=== PATIENT | female | born 1975 | race Caucasian/White ===

== ENCOUNTER → 2018-12-23 07:42 | Outpatient (CLI) | payer OTHER, SELFPAY ==
--- NOTE | 2018-12-23 | DI.MG.S_ITS ---
BILATERAL DIGITAL SCREENING MAMMOGRAM 3D/2D WITH CAD: 12/23/2018 CLINICAL: Routine screening. Family history of breast cancer. Comparison is made to exams dated: 12/16/2017 mammogram, 12/11/2017 mammogram, and 09/20/2015 mammogram - [facility]. The tissue of both breasts is heterogeneously dense. This may lower the sensitivity of mammography. Current study was also evaluated with a Computer Aided Detection (CAD) system. No significant masses, calcifications, or other findings are seen in either breast. There has been no significant interval change. IMPRESSION: NEGATIVE There is no mammographic evidence of malignancy. A 1 year screening mammogram is recommended. This exam was interpreted at Station ID: [id number]. NOTE: For mammograms, a report in lay terms will be sent to the patient. Approximately 15% of breast malignancies will not be visualized mammographically. In the management of a palpable breast mass, a negative mammogram must not discourage biopsy of a clinically suspicious lesion. Electronically Signed By: Albaro mcclure/maite:12/23/2018 08:58:25 copy to: Brooke Soriano letter sent: Normal Exam ACR BI-RADS Category 1: Negative 3341F
== END ==
PROVIDERS: Family Provider Family Medicine; PCP Family Medicine; Visit Provider Family Medicine
DX: Z12.31 Encounter for screening mammogram for malignant neoplasm of breast (principal); Z80.3 Family history of malignant neoplasm of breast
CPT/HCPCS: 77063; 77067

== ENCOUNTER → 2019-07-07 11:32 | Outpatient (CLI) | payer OTHER, SELFPAY ==
--- NOTE | 2019-07-07 | DI.RAD.S_ITS ---
PROCEDURE: XR AC JOINT BI INDICATIONS: DISLOCATION VS AC JOINT SEPERATION TECHNIQUE: 2 views each of both acromioclavicular joints were acquired. COMPARISON: [facility], CR, XR SHOULDER RT MIN 2V, 07/07/2019, 11:44. FINDINGS: Bones: No fractures or dislocations. Weightbearing views demonstrate unremarkable acromioclavicular joint alignment without evidence of separation. No suspicious bony lesions. Superior ribs appear normal. There are mild degenerative changes of the right acromioclavicular joint as evidenced by osteophyte formation. Soft tissues: No suspicious soft tissue calcifications. IMPRESSION: Mild degenerative changes of the right acromioclavicular joint. No radiographic evidence of acromioclavicular joint fracture or dislocation. Consider followup radiographs in 7-10 days if there is continued clinical concern. Dictated by: Bull Serrano M.D. on 07/07/2019 at 17:09 Approved by: Bull Serrano M.D. on 07/07/2019 at 17:11
--- NOTE | 2019-07-07 11:33 | DI.RAD.S_ITS ---
PROCEDURE: XR SHOULDER RT MIN 2V INDICATIONS: shoulder pain dislocation vs ac joint seperation TECHNIQUE: 3 views of the shoulder were acquired. COMPARISON: None. FINDINGS: Bones: No fractures or dislocations. No suspicious bony lesions. Visualized ribs appear intact. There mild degenerative changes of the right acromioclavicular joint as evidenced by osteophyte formation. There is no evidence of old right clavicular joint separation. There is no convincing displaced fracture of the right acromioclavicular joint. Soft tissues: No suspicious soft tissue calcifications. IMPRESSION: Mild degenerative changes of the right acromioclavicular joint. No convincing right acromioclavicular joint fracture or dislocation is identified. Consider followup radiographs in 7-10 days if there is continued clinical concern. Dictated by: Bull Serrano M.D. on 07/07/2019 at 17:04 Approved by: Bull Serrano M.D. on 07/07/2019 at 17:08
== END ==
PROVIDERS: PCP Family Medicine; Visit Provider Family Medicine
DX: M25.511 Pain in right shoulder (principal); M19.011 Primary osteoarthritis, right shoulder
CPT/HCPCS: 73030; 73050

== ENCOUNTER → 2020-03-23 08:38 | Outpatient (CLI) | payer OTHER, SELFPAY ==
--- NOTE | 2020-03-23 | DI.MG.S_ITS ---
BILATERAL DIGITAL SCREENING MAMMOGRAM 3D/2D WITH CAD: 03/23/2020 CLINICAL: Routine screening. Family history of breast cancer. Comparison is made to exams dated: 12/23/2018 mammogram, 12/11/2017 mammogram, 09/20/2015 mammogram, and 12/16/2017 mammogram - [facility]. The tissue of both breasts is heterogeneously dense. This may lower the sensitivity of mammography. Current study was also evaluated with a Computer Aided Detection (CAD) system. No significant masses, calcifications, or other findings are seen in either breast. There has been no significant interval change. IMPRESSION: NEGATIVE There is no mammographic evidence of malignancy. A 1 year screening mammogram is recommended. This exam was interpreted at Station ID: [id number]. NOTE: For mammograms, a report in lay terms will be sent to the patient. Approximately 15% of breast malignancies will not be visualized mammographically. In the management of a palpable breast mass, a negative mammogram must not discourage biopsy of a clinically suspicious lesion. Electronically Signed By: Anejl bañuelos/maite:03/25/2020 09:05:52 copy to: Emile Saenz letter sent: Normal Exam ACR BI-RADS Category 1: Negative 3341F
== END ==
PROVIDERS: PCP Family Medicine; Referring Provider Obstetrics & Gynecology; Visit Provider Obstetrics & Gynecology
DX: Z12.31 Encounter for screening mammogram for malignant neoplasm of breast (principal); Z80.3 Family history of malignant neoplasm of breast
CPT/HCPCS: 77063; 77067

== ENCOUNTER → 2021-05-13 12:25 | Outpatient (CLI) | payer OTHER, SELFPAY ==
[2021-05-13 14:08] LABS: COVID19 -Nasal RAPID Negative (Negative)
[2021-05-13 15:17] LABS: Influenza A - CEPHEID Flu A NEGATIVE (NEGATIVE); Influenza B - CEPHEID Flu B NEGATIVE (NEGATIVE)
[2021-05-13 17:14] LABS: Monotest Negative (Negative)
== END ==
PROVIDERS: PCP Family Medicine; Referring Provider Nurse Practitioner Family; Visit Provider Nurse Practitioner Family
DX: R50.9 Fever, unspecified (principal); R51.9 Headache, unspecified; R53.83 Other fatigue; J02.9 Acute pharyngitis, unspecified
CPT/HCPCS: 36415; 86318; 87070; 87502; 87635

== ENCOUNTER → 2021-05-14 11:14 | Outpatient (CLI) | payer OTHER, SELFPAY ==
--- NOTE | 2021-05-14 11:15 | DI.RAD.S_ITS ---
PROCEDURE: XR CHEST 2V INDICATIONS: cough TECHNIQUE: 2 views of the chest were acquired. COMPARISON: [facility], , CHEST 2 VIEW, 12/26/2013, 15:31. FINDINGS: Surgical changes and devices: Cholecystectomy clips. Lungs and pleura: Lungs are clear. No pleural effusions or pneumothorax. Mediastinum: Mediastinal contours are normal. Heart size is normal. Bones and chest wall: No suspicious bony abnormalities. Soft tissues appear unremarkable. IMPRESSION: No acute cardiopulmonary disease. Dictated by: Melissa Knutson M.D. on 05/14/2021 at 14:23 Approved by: Melissa Knutson M.D. on 05/14/2021 at 14:27
== END ==
PROVIDERS: PCP Family Medicine; Referring Provider Nurse Practitioner Family; Visit Provider Nurse Practitioner Family
DX: R05 Cough (principal)
CPT/HCPCS: 71046

== ENCOUNTER → 2022-01-22 09:21 | Outpatient (CLI) | payer OTHER, SELFPAY ==
[2022-01-22 10:56] LABS: Add Manual Diff / Slide Review NO; Basophils Absolute Auto 0 /uL (0-100); Basophils Percent Auto 0.9 % (0-2); Eosinophils Absolute Auto 200 /uL (0-450); Eosinophils Percent Auto 3.4 % (2-4); Hematocrit 43.4 % (36-46); Lymphocytes Absolute Auto 1300 /uL (1100-4500); Mean Corpuscular HGB Conc 34.5 % (30-36); Mean Corpuscular Hemoglobin 31.4 PG (26-34); Monocytes Absolute Auto 600 /uL (0-900); Neutrophils Absolute Auto 2400 /uL (1500-7000); Neutrophils Percent Auto 52.7 % (50-75); Platelet Count 285 X10^3/uL (150-400); Red Blood Cell Count 4.77 X10^6/uL (4.0-5.2); White Blood Cell Count 4.6 X10^3/uL (4.5-11.0)
[2022-01-22 11:08] LABS: Alanine Aminotransferase 89 IU/L (<35); Albumin 4.6 g/dL (3.5-5.0); Albumin Globulin Ratio 1.4 (1.0-2.8); Alkaline Phosphatase 79 U/L (38-126); Aspartate Aminotransferase 58 IU/L (14-36); Bilirubin Total 0.6 mg/dL (0.2-1.3); Blood Urea Nitrogen 15 mg/dL (7-17); Calcium 9.1 mg/dL (8.4-10.2); Carbon Dioxide 28 mmol/L (22-32); Chloride 103 mmol/L (98-107); Estimated Glomerular Filt Rate > 60 mL/min (>60); Globulin 3.3 g/dL (1.7-4.1); Glucose 103 mg/dL (70-100); HEMOLYSIS < 15 (0-50); Potassium 4.6 mmol/L (3.4-5.1); Sodium 140 mmol/L (137-145); Total Protein 7.9 g/dL (6.3-8.2)
[2022-01-22 11:44] LABS: TSH w/ Reflex to FT4 0.96 uIU/mL (0.47-4.68)
== END ==
PROVIDERS: PCP Family Medicine; Referring Provider Family Medicine; Visit Provider Family Medicine
DX: R05.9 Cough, unspecified (principal); R50.9 Fever, unspecified; R53.83 Other fatigue
CPT/HCPCS: 36415; 80053; 84443; 85025

== ENCOUNTER → 2022-04-18 09:02 | Outpatient (CLI) | payer OTHER, SELFPAY ==
--- NOTE | 2022-04-18 09:03 | DI.MG.S_ITS ---
BILATERAL DIGITAL SCREENING MAMMOGRAM 3D/2D WITH CAD: 04/18/2022 CLINICAL: Routine screening. Family history of breast cancer. Comparison is made to exams dated: 03/23/2020 mammogram, 12/23/2018 mammogram, and 12/11/2017 mammogram - [facility]. There are scattered fibroglandular elements in both breasts. Current study was also evaluated with a Computer Aided Detection (CAD) system. There are benign calcifications in both breasts. No significant masses, calcifications, or other findings are seen in either breast. There has been no significant interval change. IMPRESSION: BENIGN There is no mammographic evidence of malignancy. A 1 year screening mammogram is recommended. Based on the Tyrer Cuzick model (a risk assessment model) the patient's lifetime risk is 7.1% and her 10 year risk is 1.4%. According to the ACR, ACS, and NCCN guidelines, an annual breast MRI exam along with mammogram is recommended if the patient's lifetime risk is 20% or greater. This exam was interpreted at Station ID: [id number]. NOTE: For mammograms, a report in lay terms will be sent to the patient. Approximately 15% of breast malignancies will not be visualized mammographically. In the management of a palpable breast mass, a negative mammogram must not discourage biopsy of a clinically suspicious lesion. Electronically Signed By: Albaro mcclure/maite:04/20/2022 07:38:55 copy to: Emile Saenz letter sent: Normal Exam ACR BI-RADS Category 2: Benign Finding(s) 3342F
== END ==
PROVIDERS: PCP Family Medicine; Referring Provider Obstetrics & Gynecology; Visit Provider Obstetrics & Gynecology
DX: Z12.31 Encounter for screening mammogram for malignant neoplasm of breast (principal); Z80.3 Family history of malignant neoplasm of breast
CPT/HCPCS: 77063; 77067

== ENCOUNTER → 2022-05-19 16:13 | Outpatient (CLI) | payer OTHER, SELFPAY ==
--- NOTE | 2022-05-19 16:14 | DI.US.S_ITS ---
PROCEDURE: US PELVIC COMPLETE INDICATIONS: bleeding TECHNIQUE: Real-time scanning was performed of the pelvic organs, with image documentation. Additional endovaginal scanning was necessary due to incomplete visualization of the adnexal and endometrial structures by transabdominal scanning. COMPARISON: [facility], US, PELVIC COMPLETE, 08/09/2007, 9:11. FINDINGS: Uterus: Uterus is anteverted and normal in size at 7.6 x 3.1 x 4.7 cm. The myometrium is heterogeneous. The endometrium is ill-defined and suboptimally visualized. Approximately 3 mm. Ovaries: Ovaries are surgically absent. No adnexal masses seen. Other: No pathologic free abdominal or pelvic fluid. IMPRESSION: 1. The endometrial complex is suboptimally visualized, ill-defined and cannot be accurately assessed. If indicated, pre and post contrast gynecologic protocol MRI could be performed for further assessment. 2. The ovaries are not clearly seen bilaterally. No adnexal masses seen. We strive to produce accurate, complete, and clear reports of imaging services. To assist us in improving patient care, this report was composed using standard report templates and voice recognition software. Therefore, it may contain abnormal punctuation, insertions and/or omissions. Occasional wrong-word or sound-alike substitutions may occur. Though we review the report and make efforts to correct it, we do recommend that the report be read carefully in proper context to recognize any text inaccuracies. Dictated by: Mo LAWTON Interpreted: Anjel Lynn MD on 05/19/2022 at 16:59 Approved by: Anjel Lynn M.D. on 05/19/2022 at 18:32
== END ==
PROVIDERS: PCP Family Medicine; Referring Provider Obstetrics & Gynecology; Visit Provider Obstetrics & Gynecology
DX: N92.6 Irregular menstruation, unspecified (principal)
CPT/HCPCS: 76830; 76856

== ENCOUNTER → 2022-07-17 15:23 | Outpatient (CLI) | payer OTHER, SELFPAY | PROVIDERS: PCP Family Medicine; Referring Provider Internal Medicine; Visit Provider Internal Medicine | DX: Z23 Encounter for immunization (principal) | CPT/HCPCS: 90471; 90686 ==

== ENCOUNTER 2022-12-15 08:15 | Outpatient (RCR) | payer OTHER, SELFPAY ==
--- NOTE | 2022-11-13 11:11 | PT.OIE ---
Current Diagnoses Nondisplaced avulsion fracture (chip fracture) of left talus, initial encounter for closed fracture (11/13/22) Sprain of deltoid ligament of left ankle, sequela (11/13/22) Past Surgical History (Last Updated 03/16/18 @ 10:50 by Chiqui Jurado) History of bilateral salpingo-oophorectomy (BSO) (2006) History of third molar tooth extraction (1995) Status post laparoscopic cholecystectomy (2009) Status post tonsillectomy and adenoidectomy (1989) Visit Care Team Role Provider Type Emile Saenz MD Family Provider Physician Primary Care Provider Specialty: Family Practice Address: [address] [place] [address], [id number] Email: [email or web address] Charo Patiño DPM Attending Provider Physician Referring Provider Specialty: Orthopedics Orthopedic Surgery Podiatry Address: [address] [place] [address], [id number] Email: [email or web address] Physical Therapy Initial Evaluation PT-OP-A Visit Information Start: 11/13/22 09:05 Freq: Status: Active Protocol: Document 11/13/22 09:06 TH (Rec: 11/13/22 11:11 [id number]) Out-Patient Physical Therapy Visit Information Visit Information Visit Type Initial Evaluation Visit Start Time 09:00 Visit Stop Time 09:45 Total Visit Minutes 45 Visit Number 1 Number of WEBMASTER Visits 0 Precautions Precautions NWB for another 3-4 weeks per PT-OP-B Current Condition Start: 11/13/22 09:05 Freq: Status: Active Protocol: Document 11/13/22 09:06 TH (Rec: 11/13/22 11:11 [id number]) Current Condition History of Current Condition History of Current Condition Pt had a left ankle sprain injury and fracture of talus x two weeks ago. Pt. states that she had holding on to her dog when her dog suddenly jerked resulting in twist of left ankle. Pt c/o swelling despite elevating. Pt has a Cam[employer] and wears all day except when sleeping. Pt has a second story but has staying down stairs. 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 Prior Treatments and Tests Per xray report: pt has left deltoid lig. avulsion as well as fx of talus. Prior Functional Status Baseline Function- ADL's Independent Baseline Function- Mobility Independent Current Functional Impairments (Reported) Functional Limitations- ADL's IND with ADLs needs assist with dressing lower half due to left ankle pain Functional Limitations- Mobility/Gait Using scooter for now and Cam[employer] Has stairs though not currently using PT-OP-C Subjective Start: 11/13/22 09:05 Freq: Status: Active Protocol: Document 11/13/22 09:06 TH (Rec: 11/13/22 11:11 [id number]) Patient Questionnaires Lower Extremity Functional Scale LEFS Impairment 1 to 19% Impaired (Score 63-79 ) OP-PT Pain Assessment Pain Assessment Grid Paper Pain Assessment Grid Completed No Location l ankle Scale Used Numeric (0 - 10) Description Aching,Sharp Frequency Constant Other Pain Alleviating Factors none Comments Pain Comments Pain severe along medial ankle PT-OP-K Range of Motion Start: 11/13/22 09:05 Freq: Status: Active Protocol: Document 11/13/22 09:06 TH (Rec: 11/13/22 11:11 [id number]) Ankle and Foot Goniometric Range of Motion Ankle and Foot left Comments unable to assess due to too much pain Ankle and Foot ROM Limitations ROM Limitations Swelling Comments MOderate swelling noted left ankle Toes pink / warm PT-OP-M Strength Start: 11/13/22 09:05 Freq: Status: Active Protocol: Document 11/13/22 09:06 TH (Rec: 11/13/22 11:11 [id number]) Ankle/Foot Strength Ankle and Foot Manual Muscle Testing Left Comments unable to assess due to too much pain PT-OP-Q Treatments Start: 11/13/22 09:05 Freq: Status: Active Protocol: Document 11/13/22 09:06 TH (Rec: 11/13/22 11:11 [id number]) Manual Therapy Treatment Soft Tissue Mobilization STM Comments Left ankle/ leg to reduce swelling PT-OP-R Modalities Start: 11/13/22 09:05 Freq: Status: Active Protocol: Document 11/13/22 09:06 TH (Rec: 11/13/22 11:11 [id number]) Ultrasound Therapy Treatment left ankle Patient Position Supine Frequency Setting (mHz) 2 Mode Setting Pulsed Duty Cycle 20% Comments along medial/lateral ankle PT-OP-T Assessment and Plan Start: 11/13/22 09:05 Freq: Status: Active Protocol: Document 11/13/22 09:06 TH (Rec: 11/13/22 11:11 TH [id number]) Physical Therapy Assessment Rehab Potential Rehabilitation Potential Excellent Evaluation Complexity Number of Personal Factors/Comorbidities 0 Number of Body Systems Impaired 1-2 Clinical Presentation at Evaluation Stable Impairments Other Impairments NWB LLE Goals 4 Jail Goal (LTG) Pt will be able to navigate 1 flight of steps with alternating step pattern and minimal use of UE support. LTG Duration 01/29/23 3 Impairment Left ankle weakness. Short Term Goal (STG) Left ankle strength will improve to 4-/5 in all planes STG Duration 12/18/22 Technology Instructor Goal (LTG) Left ankle strength will improve to 5/5 in all planes LTG Duration 01/29/23 2 Impairment Limited ankle rom Short Term Goal (STG) Left ankle rom will be WFL. STG Duration 12/18/22 Jail Goal (LTG) Left ankle rom will be WNL LTG Duration 01/29/23 1 Impairment Unable to ambulate with weight through LLE Short Term Goal (STG) Pt will be able to ambulate with LRAD with PWB left LE ( 20 feet) STG Duration 12/18/22 Jail Goal (LTG) Pt will be able to ambulate without AD FWB LLE ( 100 + feet) uneven/even terrain LTG Duration 01/29/23 Assessment Summary Assessment Pt presents with swelling, pain , decreased let ankle rom /strength post sprain/fx injury. Pt will benefit from further pt to improve left ankle/LE strength /rom for improved ability to perform functional mobility. Physical Therapy Plan Frequency and Duration Frequency of Treatment 2x/wk 8 wks 1x/wk 6 Therapeutic Interventions Therapeutic Interventions Gait Training,Home Exercise Program,Joint Mobilizations, Manual Therapy,Neuromuscular Re-education,Orthotic/ Prosthetic Management,Patient/ Caregiver Education,Self-Care/ Home Management,Sensory Integration,Soft Tissue Mobilization,Taping, Therapeutic Activities, Therapeutic Exercises Modalities Biofeedback,Cold Pack/Ice Massage,Electric Stimulation, Hot Packs,Ultrasound, Vasopneumatic Devices Next Visit Focus/Plan Next Note Type Treatment Note Next Visit Plan Edema reduction gentle Ankle rom Hip ex.
--- NOTE | 2022-11-13 11:11 | PT.OPPOC ---
Physical, Occupational & Speech Therapy At [facility] Current Diagnoses Nondisplaced avulsion fracture (chip fracture) of left talus, initial encounter for closed fracture (11/13/22) Sprain of deltoid ligament of left ankle, sequela (11/13/22) Visit Care Team Role Provider Type Emile Saenz MD Family Provider Physician Primary Care Provider Specialty: Family Practice Address: [address] [place] [address], [address] Email: [email or web address] Charo Patiño DPM Attending Provider Physician Referring Provider Specialty: Orthopedics Orthopedic Surgery Podiatry Address: [address] [place] [address], [address] Email: [email or web address] Plan Of Care PT-OP-T Assessment and Plan Start: 11/13/22 09:05 Freq: Status: Active Protocol: Document 11/13/22 09:06 TH (Rec: 11/13/22 11:11 TH [id number]) Physical Therapy Assessment Rehab Potential Rehabilitation Potential Excellent Evaluation Complexity Number of Personal Factors/Comorbidities 0 Number of Body Systems Impaired 1-2 Clinical Presentation at Evaluation Stable Impairments Other Impairments NWB LLE Goals 4 Intermediate Goal (LTG) Pt will be able to navigate 1 flight of steps with alternating step pattern and minimal use of UE support. LTG Duration 01/29/23 3 Impairment Left ankle weakness. Short Term Goal (STG) Left ankle strength will improve to 4-/5 in all planes STG Duration 12/18/22 Paper Rewinder Goal (LTG) Left ankle strength will improve to 5/5 in all planes LTG Duration 01/29/23 2 Impairment Limited ankle rom Short Term Goal (STG) Left ankle rom will be WFL. STG Duration 12/18/22 Intermediate Goal (LTG) Left ankle rom will be WNL LTG Duration 01/29/23 1 Impairment Unable to ambulate with weight through LLE Short Term Goal (STG) Pt will be able to ambulate with LRAD with PWB left LE ( 20 feet) STG Duration 12/18/22 Intermediate Goal (LTG) Pt will be able to ambulate without AD FWB LLE ( 100 + feet) uneven/even terrain LTG Duration 01/29/23 Assessment Summary Assessment Pt presents with swelling, pain , decreased let ankle rom /strength post sprain/fx injury. Pt will benefit from further pt to improve left ankle/LE strength /rom for improved ability to perform functional mobility. Physical Therapy Plan Frequency and Duration Frequency of Treatment 2x/wk 8 wks 1x/wk 6 Therapeutic Interventions Therapeutic Interventions Gait Training,Home Exercise Program,Joint Mobilizations, Manual Therapy,Neuromuscular Re-education,Orthotic/ Prosthetic Management,Patient/ Caregiver Education,Self-Care/ Home Management,Sensory Integration,Soft Tissue Mobilization,Taping, Therapeutic Activities, Therapeutic Exercises Modalities Biofeedback,Cold Pack/Ice Massage,Electric Stimulation, Hot Packs,Ultrasound, Vasopneumatic Devices Next Visit Focus/Plan Next Note Type Treatment Note Next Visit Plan Edema reduction gentle Ankle rom Hip ex. Electronically Signed by: Vero Coleman, PT 11/13/22 1111 If you are in agreement with this Plan of Care, please return a signed and dated copy. I have reviewed this Plan of Care and certify that the skilled therapy services above are required to meet the patient?s needs. Physician Signature Date Printed Name and Credentials Clinical Instructor Signature Printed Name and Credentials
--- NOTE | 2022-11-18 16:25 | PT.OTN ---
Current Diagnoses Nondisplaced avulsion fracture (chip fracture) of left talus, initial encounter for closed fracture (11/18/22) Sprain of deltoid ligament of left ankle, sequela (11/18/22) Physical Therapy Treatment Note PT-OP-A Visit Information Start: 11/13/22 09:05 Freq: Status: Active Protocol: Document 11/18/22 16:18 TH (Rec: 11/18/22 16:25 TH [id number]) Out-Patient Physical Therapy Visit Information Visit Information Visit Type Treatment Note Visit Start Time 03:15 Visit Stop Time 04:00 Total Visit Minutes 45 Visit Number 2 Number of LANDSCAPE SUPERVISOR Visits 0 PT-OP-B Current Condition Start: 11/13/22 09:05 Freq: Status: Active Protocol: Document 11/13/22 09:06 TH (Rec: 11/13/22 11:11 TH [id number]) Current Condition History of Current Condition History of Current Condition Pt had a left ankle sprain injury and fracture of talus x two weeks ago. Pt. states that she had holding on to her dog when her dog suddenly jerked resulting in twist of left ankle. Pt c/o swelling despite elevating. Pt has a [employer] and wears all day except when sleeping. Pt has a second story but has staying down stairs. 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 Prior Treatments and Tests Per xray report: pt has left deltoid lig. avulsion as well as fx of talus. Prior Functional Status Baseline Function- ADL's Independent Baseline Function- Mobility Independent Current Functional Impairments (Reported) Functional Limitations- ADL's IND with ADLs needs assist with dressing lower half due to left ankle pain Functional Limitations- Mobility/Gait Using scooter for now and [employer] Has stairs though not currently using PT-OP-C Subjective Start: 11/13/22 09:05 Freq: Status: Active Protocol: Document 11/18/22 16:18 TH (Rec: 11/18/22 16:25 TH [id number]) OP-PT Subjective Patient Comments Patient Comments Pt states pain had improved temporarily after last visit and then later that after at work pain had returned. She has noticed swelling is slightly better since rx and working on massage at home. Patient Reported Progress Improving PT-OP-K Range of Motion Start: 11/13/22 09:05 Freq: Status: Active Protocol: Document 11/13/22 09:06 TH (Rec: 11/13/22 11:11 TH [id number]) Ankle and Foot Goniometric Range of Motion Ankle and Foot left Comments unable to assess due to too much pain Ankle and Foot ROM Limitations ROM Limitations Swelling Comments MOderate swelling noted left ankle Toes pink / warm PT-OP-M Strength Start: 11/13/22 09:05 Freq: Status: Active Protocol: Document 11/13/22 09:06 TH (Rec: 11/13/22 11:11 TH [id number]) Ankle/Foot Strength Ankle and Foot Manual Muscle Testing Left Comments unable to assess due to too much pain PT-OP-Q Treatments Start: 11/13/22 09:05 Freq: Status: Active Protocol: Document 11/18/22 16:18 TH (Rec: 11/18/22 16:25 TH [id number]) Therapeutic Exercises Other Exercises ball roll Comments ball roll plantar fascia/ side to side to mobilize toes gentle AROM Comments left ankle all planes Manual Therapy Treatment Manual Techniques ice massage Comments medial left ankle STM Comments left foot and leg to improve swelling PT-OP-R Modalities Start: 11/13/22 09:05 Freq: Status: Active Protocol: Document 11/18/22 16:18 TH (Rec: 11/18/22 16:25 TH [id number]) Ultrasound Therapy Treatment Left Comments medial ankle PT-OP-T Assessment and Plan Start: 11/13/22 09:05 Freq: Status: Active Protocol: Document 11/18/22 16:18 TH (Rec: 11/18/22 16:25 TH [id number]) Physical Therapy Assessment Goals 4 Metallurgist Process Goal (LTG) Pt will be able to navigate 1 flight of steps with alternating step pattern and minimal use of UE support. LTG Duration 01/29/23 3 Impairment Left ankle weakness. Short Term Goal (STG) Left ankle strength will improve to 4-/5 in all planes STG Duration 12/18/22 Senior Care Goal (LTG) Left ankle strength will improve to 5/5 in all planes LTG Duration 01/29/23 2 Impairment Limited ankle rom Short Term Goal (STG) Left ankle rom will be WFL. STG Duration 12/18/22 Senior Care Goal (LTG) Left ankle rom will be WNL LTG Duration 01/29/23 1 Impairment Unable to ambulate with weight through LLE Short Term Goal (STG) Pt will be able to ambulate with LRAD with PWB left LE ( 20 feet) STG Duration 12/18/22 Metallurgist Process Goal (LTG) Pt will be able to ambulate without AD FWB LLE ( 100 + feet) uneven/even terrain LTG Duration 01/29/23 Assessment Summary Assessment Pt is makimg steady progress. Swelling is decreasing and rom is slightly better. Physical Therapy Plan Frequency and Duration Frequency of Treatment 2x/wk 8 wks 1x/wk 6 Therapeutic Interventions Therapeutic Interventions Gait Training,Home Exercise Program,Joint Mobilizations, Manual Therapy,Neuromuscular Re-education,Orthotic/ Prosthetic Management,Patient/ Caregiver Education,Self-Care/ Home Management,Sensory Integration,Soft Tissue Mobilization,Taping, Therapeutic Activities, Therapeutic Exercises Modalities Biofeedback,Cold Pack/Ice Massage,Electric Stimulation, Hot Packs,Ultrasound, Vasopneumatic Devices
--- NOTE | 2022-11-20 11:18 | PT.OTN ---
Current Diagnoses Nondisplaced avulsion fracture (chip fracture) of left talus, initial encounter for closed fracture (11/20/22) Sprain of deltoid ligament of left ankle, sequela (11/20/22) Physical Therapy Treatment Note PT-OP-A Visit Information Start: 11/13/22 09:05 Freq: Status: Active Protocol: Document 11/20/22 10:41 TH (Rec: 11/20/22 11:18 TH [id number]) Out-Patient Physical Therapy Visit Information Visit Information Visit Type Treatment Note Visit Start Time 10:35 Visit Stop Time 11:15 Total Visit Minutes 45 Visit Number 3 Number of MOVIE STUNT PERFORMER Visits 0 PT-OP-B Current Condition Start: 11/13/22 09:05 Freq: Status: Active Protocol: Document 11/13/22 09:06 TH (Rec: 11/13/22 11:11 TH [id number]) Current Condition History of Current Condition History of Current Condition Pt had a left ankle sprain injury and fracture of talus x two weeks ago. Pt. states that she had holding on to her dog when her dog suddenly jerked resulting in twist of left ankle. Pt c/o swelling despite elevating. Pt has a CamBoot and wears all day except when sleeping. Pt has a second story but has staying down stairs. 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 Prior Treatments and Tests Per xray report: pt has left deltoid lig. avulsion as well as fx of talus. Prior Functional Status Baseline Function- ADL's Independent Baseline Function- Mobility Independent Current Functional Impairments (Reported) Functional Limitations- ADL's IND with ADLs needs assist with dressing lower half due to left ankle pain Functional Limitations- Mobility/Gait Using scooter for now and Cam[employer] Has stairs though not currently using PT-OP-C Subjective Start: 11/13/22 09:05 Freq: Status: Active Protocol: Document 11/20/22 10:41 TH (Rec: 11/20/22 11:18 TH [id number]) OP-PT Subjective Patient Comments Patient Comments Pt reports she has been doinig contrast bath as instructed and that it has been helping with swelling and pain. Patient Reported Progress Improving PT-OP-K Range of Motion Start: 11/13/22 09:05 Freq: Status: Active Protocol: Document 11/20/22 10:41 TH (Rec: 11/20/22 11:18 TH [id number]) Ankle and Foot Goniometric Range of Motion Ankle and Foot left Dorsiflexion with Knee Extended 5 Plantarflexion 7 Inversion 5 Eversion 3 Comments Pt still very tender with ankle movement ( along medial ankle/plantar fascia) PT-OP-M Strength Start: 11/13/22 09:05 Freq: Status: Active Protocol: Document 11/13/22 09:06 TH (Rec: 11/13/22 11:11 TH [id number]) Ankle/Foot Strength Ankle and Foot Manual Muscle Testing Left Comments unable to assess due to too much pain PT-OP-Q Treatments Start: 11/13/22 09:05 Freq: Status: Active Protocol: Document 11/20/22 10:41 TH (Rec: 11/20/22 11:18 TH [id number]) Therapeutic Exercises Other Exercises gentle AROM Comments left ankle all planes Manual Therapy Treatment Manual Techniques STM Comments left foot and leg to improve swelling PT-OP-R Modalities Start: 11/13/22 09:05 Freq: Status: Active Protocol: Document 11/20/22 10:41 TH (Rec: 11/20/22 11:18 TH [id number]) Electric Stimulation Electric Stimulation left ankle Comments 20% pulsed ESTIM + COLD Ultrasound Therapy Treatment Left Comments medial ankle PT-OP-T Assessment and Plan Start: 11/13/22 09:05 Freq: Status: Active Protocol: Document 11/20/22 10:41 TH (Rec: 11/20/22 11:18 TH [id number]) Physical Therapy Assessment Goals 4 Occupational Therapy Professor Goal (LTG) Pt will be able to navigate 1 flight of steps with alternating step pattern and minimal use of UE support. LTG Duration 01/29/23 3 Impairment Left ankle weakness. Short Term Goal (STG) Left ankle strength will improve to 4-/5 in all planes STG Duration 12/18/22 Occupational Therapy Professor Goal (LTG) Left ankle strength will improve to 5/5 in all planes LTG Duration 01/29/23 2 Impairment Limited ankle rom Short Term Goal (STG) Left ankle rom will be WFL. STG Duration 12/18/22 Occupational Therapy Professor Goal (LTG) Left ankle rom will be WNL LTG Duration 01/29/23 1 Impairment Unable to ambulate with weight through LLE Short Term Goal (STG) Pt will be able to ambulate with LRAD with PWB left LE ( 20 feet) STG Duration 12/18/22 Custodial Goal (LTG) Pt will be able to ambulate without AD FWB LLE ( 100 + feet) uneven/even terrain LTG Duration 01/29/23 Assessment Summary Assessment Pt is making slow but steady progress. Limited by pain and swelling. However, pain and swelling has been improving since start of PT. Attempted isometric ex. however pt still unable to attempt. Physical Therapy Plan Frequency and Duration Frequency of Treatment 2x/wk 8 wks 1x/wk 6 Therapeutic Interventions Therapeutic Interventions Gait Training,Home Exercise Program,Joint Mobilizations, Manual Therapy,Neuromuscular Re-education,Orthotic/ Prosthetic Management,Patient/ Caregiver Education,Self-Care/ Home Management,Sensory Integration,Soft Tissue Mobilization,Taping, Therapeutic Activities, Therapeutic Exercises Modalities Biofeedback,Cold Pack/Ice Massage,Electric Stimulation, Hot Packs,Ultrasound, Vasopneumatic Devices
--- NOTE | 2022-11-25 16:11 | PT.OTN ---
Current Diagnoses Nondisplaced avulsion fracture (chip fracture) of left talus, initial encounter for closed fracture (11/25/22) Sprain of deltoid ligament of left ankle, sequela (11/25/22) Physical Therapy Treatment Note PT-OP-A Visit Information Start: 11/13/22 09:05 Freq: Status: Active Protocol: Document 11/25/22 15:20 TH (Rec: 11/25/22 16:10 TH [id number]) Out-Patient Physical Therapy Visit Information Visit Information Visit Type Treatment Note Visit Start Time 15:15 Visit Stop Time 16:00 Total Visit Minutes 45 Visit Number 4 Number of PROTOCOL MANAGER Visits 0 PT-OP-B Current Condition Start: 11/13/22 09:05 Freq: Status: Active Protocol: Document 11/13/22 09:06 TH (Rec: 11/13/22 11:11 TH [id number]) Current Condition History of Current Condition History of Current Condition Pt had a left ankle sprain injury and fracture of talus x two weeks ago. Pt. states that she had holding on to her dog when her dog suddenly jerked resulting in twist of left ankle. Pt c/o swelling despite elevating. Pt has a CamBoot and wears all day except when sleeping. Pt has a second story but has staying down stairs. 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 Prior Treatments and Tests Per xray report: pt has left deltoid lig. avulsion as well as fx of talus. Prior Functional Status Baseline Function- ADL's Independent Baseline Function- Mobility Independent Current Functional Impairments (Reported) Functional Limitations- ADL's IND with ADLs needs assist with dressing lower half due to left ankle pain Functional Limitations- Mobility/Gait Using scooter for now and [employer] Has stairs though not currently using PT-OP-C Subjective Start: 11/13/22 09:05 Freq: Status: Active Protocol: Document 11/25/22 15:20 TH (Rec: 11/25/22 16:10 TH [id number]) OP-PT Subjective Patient Comments Patient Comments Pt states she had been doing better with swelling and pain however 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 Patient Reported Progress Improving PT-OP-K Range of Motion Start: 11/13/22 09:05 Freq: Status: Active Protocol: Document 11/25/22 15:20 TH (Rec: 11/25/22 16:10 TH [id number]) Ankle and Foot Goniometric Range of Motion Ankle and Foot left Dorsiflexion with Knee Extended 12 Plantarflexion 15 Inversion 10 Eversion 7 Comments Pt still limited by pain PT-OP-M Strength Start: 11/13/22 09:05 Freq: Status: Active Protocol: Document 11/13/22 09:06 TH (Rec: 11/13/22 11:11 TH [id number]) Ankle/Foot Strength Ankle and Foot Manual Muscle Testing Left Comments unable to assess due to too much pain PT-OP-Q Treatments Start: 11/13/22 09:05 Freq: Status: Active Protocol: Document 11/25/22 15:20 TH (Rec: 11/25/22 16:10 TH [id number]) Therapeutic Exercises Other Exercises gentle AROM Comments ankle rom in all planes x 10 times each Manual Therapy Treatment Manual Techniques STM Comments left foot and leg to improve swelling PT-OP-R Modalities Start: 11/13/22 09:05 Freq: Status: Active Protocol: Document 11/25/22 15:20 TH (Rec: 11/25/22 16:10 TH [id number]) Electric Stimulation Electric Stimulation left ankle Comments ESTIM + COLD Ultrasound Therapy Treatment left ankle Patient Position Supine Mode Setting Pulsed Duty Cycle 20% Comments left medial ankle PT-OP-T Assessment and Plan Start: 11/13/22 09:05 Freq: Status: Active Protocol: Document 11/25/22 15:20 TH (Rec: 11/25/22 16:10 TH [id number]) Physical Therapy Assessment Goals 4 Mcfp Goal (LTG) Pt will be able to navigate 1 flight of steps with alternating step pattern and minimal use of UE support. LTG Duration 01/29/23 3 Impairment Left ankle weakness. Short Term Goal (STG) Left ankle strength will improve to 4-/5 in all planes STG Duration 12/18/22 Log Snaker Goal (LTG) Left ankle strength will improve to 5/5 in all planes LTG Duration 01/29/23 2 Impairment Limited ankle rom Short Term Goal (STG) Left ankle rom will be WFL. STG Duration 12/18/22 Mcfp Goal (LTG) Left ankle rom will be WNL LTG Duration 01/29/23 1 Impairment Unable to ambulate with weight through LLE Short Term Goal (STG) Pt will be able to ambulate with LRAD with PWB left LE ( 20 feet) STG Duration 12/18/22 Log Snaker Goal (LTG) Pt will be able to ambulate without AD FWB LLE ( 100 + feet) uneven/even terrain LTG Duration 01/29/23 Assessment Summary Assessment Pt is making steady progress as demonstrated by decreased swelling and improving rom. Left ankle and lower leg more swollen today as a result of working longer hours again. Encouraged pt to wear compression socks at home. Physical Therapy Plan Frequency and Duration Frequency of Treatment 2x/wk 8 wks 1x/wk 6 Therapeutic Interventions Therapeutic Interventions Gait Training,Home Exercise Program,Joint Mobilizations, Manual Therapy,Neuromuscular Re-education,Orthotic/ Prosthetic Management,Patient/ Caregiver Education,Self-Care/ Home Management,Sensory Integration,Soft Tissue Mobilization,Taping, Therapeutic Activities, Therapeutic Exercises Modalities Biofeedback,Cold Pack/Ice Massage,Electric Stimulation, Hot Packs,Ultrasound, Vasopneumatic Devices Next Visit Focus/Plan Next Visit Plan STM MOdalities PROM/AAROM isometrics if tolerable
--- NOTE | 2022-11-25 16:21 | PT.OTN ---
Current Diagnoses Nondisplaced avulsion fracture (chip fracture) of left talus, initial encounter for closed fracture (11/25/22) Sprain of deltoid ligament of left ankle, sequela (11/25/22) Physical Therapy Treatment Note PT-OP-A Visit Information Start: 11/13/22 09:05 Freq: Status: Active Protocol: Document 11/25/22 15:20 TH (Rec: 11/25/22 16:10 TH [id number]) Out-Patient Physical Therapy Visit Information Visit Information Visit Type Treatment Note Visit Start Time 15:15 Visit Stop Time 16:00 Total Visit Minutes 45 Visit Number 4 Number of FILLING WINDER Visits 0 PT-OP-B Current Condition Start: 11/13/22 09:05 Freq: Status: Active Protocol: Document 11/13/22 09:06 TH (Rec: 11/13/22 11:11 TH [id number]) Current Condition History of Current Condition History of Current Condition Pt had a left ankle sprain injury and fracture of talus x two weeks ago. Pt. states that she had holding on to her dog when her dog suddenly jerked resulting in twist of left ankle. Pt c/o swelling despite elevating. Pt has a CamBoot and wears all day except when sleeping. Pt has a second story but has staying down stairs. 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 Prior Treatments and Tests Per xray report: pt has left deltoid lig. avulsion as well as fx of talus. Prior Functional Status Baseline Function- ADL's Independent Baseline Function- Mobility Independent Current Functional Impairments (Reported) Functional Limitations- ADL's IND with ADLs needs assist with dressing lower half due to left ankle pain Functional Limitations- Mobility/Gait Using scooter for now and [employer] Has stairs though not currently using PT-OP-C Subjective Start: 11/13/22 09:05 Freq: Status: Active Protocol: Document 11/25/22 15:20 TH (Rec: 11/25/22 16:10 TH [id number]) OP-PT Subjective Patient Comments Patient Comments Pt states she had been doing better with swelling and pain however she had to return to work sde to cover a shift and now LE is getting swollen and more painful again . Patient Reported Progress Improving PT-OP-K Range of Motion Start: 11/13/22 09:05 Freq: Status: Active Protocol: Document 11/25/22 15:20 TH (Rec: 11/25/22 16:10 TH [id number]) Ankle and Foot Goniometric Range of Motion Ankle and Foot left Dorsiflexion with Knee Extended 12 Plantarflexion 15 Inversion 10 Eversion 7 Comments Pt still limited by pain PT-OP-M Strength Start: 11/13/22 09:05 Freq: Status: Active Protocol: Document 11/13/22 09:06 TH (Rec: 11/13/22 11:11 TH [id number]) Ankle/Foot Strength Ankle and Foot Manual Muscle Testing Left Comments unable to assess due to too much pain PT-OP-Q Treatments Start: 11/13/22 09:05 Freq: Status: Active Protocol: Document 11/25/22 15:20 TH (Rec: 11/25/22 16:10 TH [id number]) Therapeutic Exercises Other Exercises gentle AROM Comments ankle rom in all planes x 10 times each Manual Therapy Treatment Manual Techniques STM Comments left foot and leg to improve swelling PT-OP-R Modalities Start: 11/13/22 09:05 Freq: Status: Active Protocol: Document 11/25/22 15:20 TH (Rec: 11/25/22 16:10 TH [id number]) Electric Stimulation Electric Stimulation left ankle Comments ESTIM + COLD Ultrasound Therapy Treatment left ankle Patient Position Supine Mode Setting Pulsed Duty Cycle 20% Comments left medial ankle PT-OP-T Assessment and Plan Start: 11/13/22 09:05 Freq: Status: Active Protocol: Document 11/25/22 15:20 TH (Rec: 11/25/22 16:10 TH [id number]) Physical Therapy Assessment Goals 4 Mcfp Goal (LTG) Pt will be able to navigate 1 flight of steps with alternating step pattern and minimal use of UE support. LTG Duration 01/29/23 3 Impairment Left ankle weakness. Short Term Goal (STG) Left ankle strength will improve to 4-/5 in all planes STG Duration 12/18/22 Infection Control Rn Goal (LTG) Left ankle strength will improve to 5/5 in all planes LTG Duration 01/29/23 2 Impairment Limited ankle rom Short Term Goal (STG) Left ankle rom will be WFL. STG Duration 12/18/22 Mcfp Goal (LTG) Left ankle rom will be WNL LTG Duration 01/29/23 1 Impairment Unable to ambulate with weight through LLE Short Term Goal (STG) Pt will be able to ambulate with LRAD with PWB left LE ( 20 feet) STG Duration 12/18/22 Infection Control Rn Goal (LTG) Pt will be able to ambulate without AD FWB LLE ( 100 + feet) uneven/even terrain LTG Duration 01/29/23 Assessment Summary Assessment Pt is making steady progress as demonstrated by decreased swelling and improving rom. Left ankle and lower leg more swollen today as a result of working longer hours again. Encouraged pt to wear compression socks at home. Physical Therapy Plan Frequency and Duration Frequency of Treatment 2x/wk 8 wks 1x/wk 6 Therapeutic Interventions Therapeutic Interventions Gait Training,Home Exercise Program,Joint Mobilizations, Manual Therapy,Neuromuscular Re-education,Orthotic/ Prosthetic Management,Patient/ Caregiver Education,Self-Care/ Home Management,Sensory Integration,Soft Tissue Mobilization,Taping, Therapeutic Activities, Therapeutic Exercises Modalities Biofeedback,Cold Pack/Ice Massage,Electric Stimulation, Hot Packs,Ultrasound, Vasopneumatic Devices Next Visit Focus/Plan Next Visit Plan STM MOdalities PROM/AAROM isometrics if tolerable
--- NOTE | 2022-11-27 16:28 | PT.OTN ---
Current Diagnoses Nondisplaced avulsion fracture (chip fracture) of left talus, initial encounter for closed fracture (11/27/22) Sprain of deltoid ligament of left ankle, sequela (11/27/22) Physical Therapy Treatment Note PT-OP-A Visit Information Start: 11/13/22 09:05 Freq: Status: Active Protocol: Document 11/27/22 16:13 TH (Rec: 11/27/22 16:27 TH [id number]) Out-Patient Physical Therapy Visit Information Visit Information Visit Type Treatment Note Visit Start Time 15:15 Visit Stop Time 16:00 Total Visit Minutes 45 Visit Number 5 Number of DIE ENGRAVER Visits 0 PT-OP-B Current Condition Start: 11/13/22 09:05 Freq: Status: Active Protocol: Document 11/13/22 09:06 TH (Rec: 11/13/22 11:11 TH [id number]) Current Condition History of Current Condition History of Current Condition Pt had a left ankle sprain injury and fracture of talus x two weeks ago. Pt. states that she had holding on to her dog when her dog suddenly jerked resulting in twist of left ankle. Pt c/o swelling despite elevating. Pt has a CamBoot and wears all day except when sleeping. Pt has a second story but has staying down stairs. 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 Prior Treatments and Tests Per xray report: pt has left deltoid lig. avulsion as well as fx of talus. Prior Functional Status Baseline Function- ADL's Independent Baseline Function- Mobility Independent Current Functional Impairments (Reported) Functional Limitations- ADL's IND with ADLs needs assist with dressing lower half due to left ankle pain Functional Limitations- Mobility/Gait Using scooter for now and [employer] Has stairs though not currently using PT-OP-C Subjective Start: 11/13/22 09:05 Freq: Status: Active Protocol: Document 11/27/22 16:13 TH (Rec: 11/27/22 16:27 TH [id number]) OP-PT Subjective Patient Comments Patient Comments Pt reports that her Left ankle foot was very swollen yesterday after having medical grade stocking on. She has cut off toe portion and likley this was to tight around toes when in dependent positon. Patient Reported Progress Improving PT-OP-K Range of Motion Start: 11/13/22 09:05 Freq: Status: Active Protocol: Document 11/25/22 15:20 TH (Rec: 11/25/22 16:10 TH [id number]) Ankle and Foot Goniometric Range of Motion Ankle and Foot left Dorsiflexion with Knee Extended 12 Plantarflexion 15 Inversion 10 Eversion 7 Comments Pt still limited by pain PT-OP-M Strength Start: 11/13/22 09:05 Freq: Status: Active Protocol: Document 11/13/22 09:06 TH (Rec: 11/13/22 11:11 TH [id number]) Ankle/Foot Strength Ankle and Foot Manual Muscle Testing Left Comments unable to assess due to too much pain PT-OP-Q Treatments Start: 11/13/22 09:05 Freq: Status: Active Protocol: Document 11/27/22 16:13 TH (Rec: 11/27/22 16:27 TH [id number]) Manual Therapy Treatment Manual Techniques IASTM Comments left gastrocnemius/achilles in right sidelying ice massage Comments left medial ankle PT-OP-R Modalities Start: 11/13/22 09:05 Freq: Status: Active Protocol: Document 11/27/22 16:13 TH (Rec: 11/27/22 16:27 TH [id number]) Electric Stimulation Electric Stimulation left ankle Comments ESTIM + COLD Ultrasound Therapy Treatment left ankle Mode Setting Pulsed Duty Cycle 10% Comments Left medial ankle PT-OP-T Assessment and Plan Start: 11/13/22 09:05 Freq: Status: Active Protocol: Document 11/27/22 16:13 TH (Rec: 11/27/22 16:27 TH [id number]) Physical Therapy Assessment Goals 4 Food Production Machine Operator Goal (LTG) Pt will be able to navigate 1 flight of steps with alternating step pattern and minimal use of UE support. LTG Duration 01/29/23 3 Impairment Left ankle weakness. Short Term Goal (STG) Left ankle strength will improve to 4-/5 in all planes STG Duration 12/18/22 Food Production Machine Operator Goal (LTG) Left ankle strength will improve to 5/5 in all planes LTG Duration 01/29/23 2 Impairment Limited ankle rom Short Term Goal (STG) Left ankle rom will be WFL. STG Duration 12/18/22 Nursing Home Goal (LTG) Left ankle rom will be WNL LTG Duration 01/29/23 1 Impairment Unable to ambulate with weight through LLE Short Term Goal (STG) Pt will be able to ambulate with LRAD with PWB left LE ( 20 feet) STG Duration 12/18/22 Nursing Home Goal (LTG) Pt will be able to ambulate without AD FWB LLE ( 100 + feet) uneven/even terrain LTG Duration 01/29/23 Assessment Summary Assessment Pt is making slow but steady progress. Pt mostly limited by pain and swelling. Pt screened for DVT. L calve mm measured 16.5 compared to right = 17.0. No pain with homanns sign, no redness or heat. Pt told to keep an eye on it and to seek med attention if she notices increased swelling in lower leg. Physical Therapy Plan Frequency and Duration Frequency of Treatment 2x/wk 8 wks 1x/wk 6 Therapeutic Interventions Therapeutic Interventions Gait Training,Home Exercise Program,Joint Mobilizations, Manual Therapy,Neuromuscular Re-education,Orthotic/ Prosthetic Management,Patient/ Caregiver Education,Self-Care/ Home Management,Sensory Integration,Soft Tissue Mobilization,Taping, Therapeutic Activities, Therapeutic Exercises Modalities Biofeedback,Cold Pack/Ice Massage,Electric Stimulation, Hot Packs,Ultrasound, Vasopneumatic Devices Next Visit Focus/Plan Next Visit Plan STM MOdalities PROM/AAROM isometrics if tolerable
--- NOTE | 2022-12-02 16:12 | PT.OTN ---
Current Diagnoses Nondisplaced avulsion fracture (chip fracture) of left talus, initial encounter for closed fracture (12/02/22) Sprain of deltoid ligament of left ankle, sequela (12/02/22) Physical Therapy Treatment Note PT-OP-A Visit Information Start: 11/13/22 09:05 Freq: Status: Active Protocol: Document 12/02/22 15:59 TH (Rec: 12/02/22 16:12 TH [id number]) Out-Patient Physical Therapy Visit Information Visit Information Visit Type Treatment Note Visit Start Time 15:15 Visit Stop Time 16:00 Total Visit Minutes 45 Visit Number 6 Number of CONTACT LENS FITTER Visits 0 PT-OP-B Current Condition Start: 11/13/22 09:05 Freq: Status: Active Protocol: Document 11/13/22 09:06 TH (Rec: 11/13/22 11:11 TH [id number]) Current Condition History of Current Condition History of Current Condition Pt had a left ankle sprain injury and fracture of talus x two weeks ago. Pt. states that she had holding on to her dog when her dog suddenly jerked resulting in twist of left ankle. Pt c/o swelling despite elevating. Pt has a CamBoot and wears all day except when sleeping. Pt has a second story but has staying down stairs. 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 Prior Treatments and Tests Per xray report: pt has left deltoid lig. avulsion as well as fx of talus. Prior Functional Status Baseline Function- ADL's Independent Baseline Function- Mobility Independent Current Functional Impairments (Reported) Functional Limitations- ADL's IND with ADLs needs assist with dressing lower half due to left ankle pain Functional Limitations- Mobility/Gait Using scooter for now and CamBoot Has stairs though not currently using PT-OP-C Subjective Start: 11/13/22 09:05 Freq: Status: Active Protocol: Document 12/02/22 15:59 TH (Rec: 12/02/22 16:12 TH [id number]) OP-PT Subjective Patient Comments Patient Comments Pt states left ankle/foot pain has improved slightly since last rx. Patient Reported Progress Improving PT-OP-K Range of Motion Start: 11/13/22 09:05 Freq: Status: Active Protocol: Document 11/25/22 15:20 TH (Rec: 11/25/22 16:10 TH [id number]) Ankle and Foot Goniometric Range of Motion Ankle and Foot left Dorsiflexion with Knee Extended 12 Plantarflexion 15 Inversion 10 Eversion 7 Comments Pt still limited by pain PT-OP-M Strength Start: 11/13/22 09:05 Freq: Status: Active Protocol: Document 11/13/22 09:06 TH (Rec: 11/13/22 11:11 TH [id number]) Ankle/Foot Strength Ankle and Foot Manual Muscle Testing Left Comments unable to assess due to too much pain PT-OP-Q Treatments Start: 11/13/22 09:05 Freq: Status: Active Protocol: Document 12/02/22 15:59 TH (Rec: 12/02/22 16:12 TH [id number]) Therapeutic Exercises Other Exercises gentle AROM Comments left ankle in all planes Manual Therapy Treatment Manual Techniques IASTM Comments Left tibilais ant. STM Comments left tibilais ant. PT-OP-R Modalities Start: 11/13/22 09:05 Freq: Status: Active Protocol: Document 12/02/22 15:59 TH (Rec: 12/02/22 16:12 TH [id number]) Electric Stimulation Electric Stimulation left ankle Comments ESTIM + COLD Ultrasound Therapy Treatment left ankle Comments Left medial ankle/plantar fascia PT-OP-T Assessment and Plan Start: 11/13/22 09:05 Freq: Status: Active Protocol: Document 12/02/22 15:59 TH (Rec: 12/02/22 16:12 TH [id number]) Physical Therapy Assessment Goals 4 Coat Agent Goal (LTG) Pt will be able to navigate 1 flight of steps with alternating step pattern and minimal use of UE support. LTG Duration 01/29/23 3 Impairment Left ankle weakness. Short Term Goal (STG) Left ankle strength will improve to 4-/5 in all planes STG Duration 12/18/22 Coat Agent Goal (LTG) Left ankle strength will improve to 5/5 in all planes LTG Duration 01/29/23 2 Impairment Limited ankle rom Short Term Goal (STG) Left ankle rom will be WFL. STG Duration 12/18/22 Coat Agent Goal (LTG) Left ankle rom will be WNL LTG Duration 01/29/23 1 Impairment Unable to ambulate with weight through LLE Short Term Goal (STG) Pt will be able to ambulate with LRAD with PWB left LE ( 20 feet) STG Duration 12/18/22 Longterm Goal (LTG) Pt will be able to ambulate without AD FWB LLE ( 100 + feet) uneven/even terrain LTG Duration 01/29/23 Physical Therapy Plan Frequency and Duration Frequency of Treatment 2x/wk 8 wks 1x/wk 6 Therapeutic Interventions Therapeutic Interventions Gait Training,Home Exercise Program,Joint Mobilizations, Manual Therapy,Neuromuscular Re-education,Orthotic/ Prosthetic Management,Patient/ Caregiver Education,Self-Care/ Home Management,Sensory Integration,Soft Tissue Mobilization,Taping, Therapeutic Activities, Therapeutic Exercises Modalities Biofeedback,Cold Pack/Ice Massage,Electric Stimulation, Hot Packs,Ultrasound, Vasopneumatic Devices
--- NOTE | 2022-12-04 11:43 | PT.OTN ---
Current Diagnoses Nondisplaced avulsion fracture (chip fracture) of left talus, initial encounter for closed fracture (12/04/22) Sprain of deltoid ligament of left ankle, sequela (12/04/22) Physical Therapy Treatment Note PT-OP-A Visit Information Start: 11/13/22 09:05 Freq: Status: Active Protocol: Document 12/04/22 11:36 TH (Rec: 12/04/22 11:43 TH [id number]) Out-Patient Physical Therapy Visit Information Visit Information Visit Type Treatment Note Visit Start Time 10:45 Visit Stop Time 11:30 Total Visit Minutes 45 Visit Number 7 Number of WIRE ROPE FABRICATION SUPERVISOR Visits 0 PT-OP-B Current Condition Start: 11/13/22 09:05 Freq: Status: Active Protocol: Document 11/13/22 09:06 TH (Rec: 11/13/22 11:11 TH [id number]) Current Condition History of Current Condition History of Current Condition Pt had a left ankle sprain injury and fracture of talus x two weeks ago. Pt. states that she had holding on to her dog when her dog suddenly jerked resulting in twist of left ankle. Pt c/o swelling despite elevating. Pt has a CamBoot and wears all day except when sleeping. Pt has a second story but has staying down stairs. 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 Prior Treatments and Tests Per xray report: pt has left deltoid lig. avulsion as well as fx of talus. Prior Functional Status Baseline Function- ADL's Independent Baseline Function- Mobility Independent Current Functional Impairments (Reported) Functional Limitations- ADL's IND with ADLs needs assist with dressing lower half due to left ankle pain Functional Limitations- Mobility/Gait Using scooter for now and [employer] Has stairs though not currently using PT-OP-C Subjective Start: 11/13/22 09:05 Freq: Status: Active Protocol: Document 12/02/22 15:59 TH (Rec: 12/02/22 16:12 TH [id number]) OP-PT Subjective Patient Comments Patient Comments Pt states left ankle/foot pain has improved slightly since last rx. Patient Reported Progress Improving PT-OP-K Range of Motion Start: 11/13/22 09:05 Freq: Status: Active Protocol: Document 11/25/22 15:20 TH (Rec: 11/25/22 16:10 TH [id number]) Ankle and Foot Goniometric Range of Motion Ankle and Foot left Dorsiflexion with Knee Extended 12 Plantarflexion 15 Inversion 10 Eversion 7 Comments Pt still limited by pain PT-OP-M Strength Start: 11/13/22 09:05 Freq: Status: Active Protocol: Document 11/13/22 09:06 TH (Rec: 11/13/22 11:11 TH [id number]) Ankle/Foot Strength Ankle and Foot Manual Muscle Testing Left Comments unable to assess due to too much pain PT-OP-Q Treatments Start: 11/13/22 09:05 Freq: Status: Active Protocol: Document 12/04/22 11:36 TH (Rec: 12/04/22 11:43 TH [id number]) Manual Therapy Treatment Manual Techniques Transverse arch Comments mobilization left to improve flattened transvers arch. PT-OP-R Modalities Start: 11/13/22 09:05 Freq: Status: Active Protocol: Document 12/04/22 11:36 TH (Rec: 12/04/22 11:43 TH [id number]) Electric Stimulation Electric Stimulation left ankle Comments ESTIM+COLD Ultrasound Therapy Treatment Left Comments Plantar fascia PT-OP-T Assessment and Plan Start: 11/13/22 09:05 Freq: Status: Active Protocol: Document 12/04/22 11:36 TH (Rec: 12/04/22 11:43 TH [id number]) Physical Therapy Assessment Goals 4 Pulley Man Goal (LTG) Pt will be able to navigate 1 flight of steps with alternating step pattern and minimal use of UE support. LTG Duration 01/29/23 3 Impairment Left ankle weakness. Short Term Goal (STG) Left ankle strength will improve to 4-/5 in all planes STG Duration 12/18/22 Pulley Man Goal (LTG) Left ankle strength will improve to 5/5 in all planes LTG Duration 01/29/23 2 Impairment Limited ankle rom Short Term Goal (STG) Left ankle rom will be WFL. STG Duration 12/18/22 Fdc Goal (LTG) Left ankle rom will be WNL LTG Duration 01/29/23 1 Impairment Unable to ambulate with weight through LLE Short Term Goal (STG) Pt will be able to ambulate with LRAD with PWB left LE ( 20 feet) STG Duration 12/18/22 Pulley Man Goal (LTG) Pt will be able to ambulate without AD FWB LLE ( 100 + feet) uneven/even terrain LTG Duration 01/29/23 Assessment Summary Assessment Progress limited by precautions. Pain is slowly improving. Pt will see MD for f/u and potential increased clearance next week. Physical Therapy Plan Frequency and Duration Frequency of Treatment 2x/wk 8 wks 1x/wk 6 Therapeutic Interventions Therapeutic Interventions Gait Training,Home Exercise Program,Joint Mobilizations, Manual Therapy,Neuromuscular Re-education,Orthotic/ Prosthetic Management,Patient/ Caregiver Education,Self-Care/ Home Management,Sensory Integration,Soft Tissue Mobilization,Taping, Therapeutic Activities, Therapeutic Exercises Modalities Biofeedback,Cold Pack/Ice Massage,Electric Stimulation, Hot Packs,Ultrasound, Vasopneumatic Devices
--- NOTE | 2022-12-08 10:44 | PT.OTN ---
Current Diagnoses Nondisplaced avulsion fracture (chip fracture) of left talus, initial encounter for closed fracture (12/08/22) Sprain of deltoid ligament of left ankle, sequela (12/08/22) Physical Therapy Treatment Note PT-OP-A Visit Information Start: 11/13/22 09:05 Freq: Status: Active Protocol: Document 12/08/22 08:13 TH (Rec: 12/08/22 09:50 TH [id number]) Out-Patient Physical Therapy Visit Information Visit Information Visit Type Treatment Note Visit Start Time 08:15 Visit Stop Time 09:00 Total Visit Minutes 45 Visit Number 8 Number of FACE BURLER Visits 0 PT-OP-B Current Condition Start: 11/13/22 09:05 Freq: Status: Active Protocol: Document 11/13/22 09:06 TH (Rec: 11/13/22 11:11 TH [id number]) Current Condition History of Current Condition History of Current Condition Pt had a left ankle sprain injury and fracture of talus x two weeks ago. Pt. states that she had holding on to her dog when her dog suddenly jerked resulting in twist of left ankle. Pt c/o swelling despite elevating. Pt has a CamBoot and wears all day except when sleeping. Pt has a second story but has staying down stairs. 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 Prior Treatments and Tests Per xray report: pt has left deltoid lig. avulsion as well as fx of talus. Prior Functional Status Baseline Function- ADL's Independent Baseline Function- Mobility Independent Current Functional Impairments (Reported) Functional Limitations- ADL's IND with ADLs needs assist with dressing lower half due to left ankle pain Functional Limitations- Mobility/Gait Using scooter for now and [employer] Has stairs though not currently using PT-OP-C Subjective Start: 11/13/22 09:05 Freq: Status: Active Protocol: Document 12/08/22 08:13 TH (Rec: 12/08/22 09:50 TH [id number]) OP-PT Subjective Patient Comments Patient Comments Pt. states new bruises around upper leg. Unknown etiology. May be the boot? Patient Reported Progress Improving PT-OP-K Range of Motion Start: 11/13/22 09:05 Freq: Status: Active Protocol: Document 12/08/22 08:13 TH (Rec: 12/08/22 09:50 TH [id number]) Ankle and Foot Goniometric Range of Motion Ankle and Foot left Dorsiflexion with Knee Extended 14 Plantarflexion 15 Inversion 10 Eversion 9 PT-OP-M Strength Start: 11/13/22 09:05 Freq: Status: Active Protocol: Document 11/13/22 09:06 TH (Rec: 11/13/22 11:11 TH [id number]) Ankle/Foot Strength Ankle and Foot Manual Muscle Testing Left Comments unable to assess due to too much pain PT-OP-Q Treatments Start: 11/13/22 09:05 Freq: Status: Active Protocol: Document 12/08/22 08:13 TH (Rec: 12/08/22 09:50 TH [id number]) Therapeutic Exercises Other Exercises gentle AROM Comments left ankle in all planes Manual Therapy Treatment Manual Techniques IASTM Comments left ant. tib. PT-OP-R Modalities Start: 11/13/22 09:05 Freq: Status: Active Protocol: Document 12/08/22 08:13 TH (Rec: 12/08/22 09:50 TH [id number]) Electric Stimulation Electric Stimulation left ankle Body Location left foot and ankle Comments ESTIM+COLD Ultrasound Therapy Treatment left ankle Comments Left medial ankle/plantar fascia PT-OP-T Assessment and Plan Start: 11/13/22 09:05 Freq: Status: Active Protocol: Document 12/08/22 08:13 TH (Rec: 12/08/22 09:50 TH [id number]) Physical Therapy Assessment Goals 4 Senior Care Goal (LTG) Pt will be able to navigate 1 flight of steps with alternating step pattern and minimal use of UE support. LTG Duration 01/29/23 3 Impairment Left ankle weakness. Short Term Goal (STG) Left ankle strength will improve to 4-/5 in all planes STG Duration 12/18/22 Bulk Sealer Operator Goal (LTG) Left ankle strength will improve to 5/5 in all planes LTG Duration 01/29/23 2 Impairment Limited ankle rom Short Term Goal (STG) Left ankle rom will be WFL. STG Duration 12/18/22 Senior Care Goal (LTG) Left ankle rom will be WNL LTG Duration 01/29/23 1 Impairment Unable to ambulate with weight through LLE Short Term Goal (STG) Pt will be able to ambulate with LRAD with PWB left LE ( 20 feet) STG Duration 12/18/22 Senior Care Goal (LTG) Pt will be able to ambulate without AD FWB LLE ( 100 + feet) uneven/even terrain LTG Duration 01/29/23 Assessment Summary Assessment Pt making steady progress. She will f/u with ortho MD tomorrow. Physical Therapy Plan Frequency and Duration Frequency of Treatment 2x/wk 8 wks 1x/wk 6 Therapeutic Interventions Therapeutic Interventions Gait Training,Home Exercise Program,Joint Mobilizations, Manual Therapy,Neuromuscular Re-education,Orthotic/ Prosthetic Management,Patient/ Caregiver Education,Self-Care/ Home Management,Sensory Integration,Soft Tissue Mobilization,Taping, Therapeutic Activities, Therapeutic Exercises Modalities Biofeedback,Cold Pack/Ice Massage,Electric Stimulation, Hot Packs,Ultrasound, Vasopneumatic Devices Next Visit Focus/Plan Next Visit Plan Progressive ROM , strength as indictaed by .
--- NOTE | 2022-12-15 12:55 | PT.OTN ---
Current Diagnoses Nondisplaced avulsion fracture (chip fracture) of left talus, initial encounter for closed fracture (12/15/22) Sprain of deltoid ligament of left ankle, sequela (12/15/22) Physical Therapy Treatment Note PT-OP-A Visit Information Start: 11/13/22 09:05 Freq: Status: Active Protocol: Document 12/15/22 11:10 TH (Rec: 12/15/22 12:55 TH [id number]) Out-Patient Physical Therapy Visit Information Visit Information Visit Type Treatment Note Visit Start Time 08:15 Visit Stop Time 09:00 Total Visit Minutes 45 Visit Number 9 Number of SOFTWARE CONFIGURATION ANALYST Visits 0 PT-OP-B Current Condition Start: 11/13/22 09:05 Freq: Status: Active Protocol: Document 11/13/22 09:06 TH (Rec: 11/13/22 11:11 TH [id number]) Current Condition History of Current Condition History of Current Condition Pt had a left ankle sprain injury and fracture of talus x two weeks ago. Pt. states that she had holding on to her dog when her dog suddenly jerked resulting in twist of left ankle. Pt c/o swelling despite elevating. Pt has a Cam[employer] and wears all day except when sleeping. Pt has a second story but has staying down stairs. 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 Prior Treatments and Tests Per xray report: pt has left deltoid lig. avulsion as well as fx of talus. Prior Functional Status Baseline Function- ADL's Independent Baseline Function- Mobility Independent Current Functional Impairments (Reported) Functional Limitations- ADL's IND with ADLs needs assist with dressing lower half due to left ankle pain Functional Limitations- Mobility/Gait Using scooter for now and [employer] Has stairs though not currently using PT-OP-C Subjective Start: 11/13/22 09:05 Freq: Status: Active Protocol: Document 12/15/22 11:10 TH (Rec: 12/15/22 12:55 TH [id number]) OP-PT Subjective Patient Comments Patient Comments Pt states she had a f/u with podiatry and still feels precautions and prognosis unclear. Pt will have mri scheduled in the next week for further diagnostics. PT-OP-K Range of Motion Start: 11/13/22 09:05 Freq: Status: Active Protocol: Document 12/08/22 08:13 TH (Rec: 12/08/22 09:50 TH [id number]) Ankle and Foot Goniometric Range of Motion Ankle and Foot left Dorsiflexion with Knee Extended 14 Plantarflexion 15 Inversion 10 Eversion 9 PT-OP-M Strength Start: 11/13/22 09:05 Freq: Status: Active Protocol: Document 11/13/22 09:06 TH (Rec: 11/13/22 11:11 TH [id number]) Ankle/Foot Strength Ankle and Foot Manual Muscle Testing Left Comments unable to assess due to too much pain PT-OP-Q Treatments Start: 11/13/22 09:05 Freq: Status: Active Protocol: Document 12/15/22 11:10 TH (Rec: 12/15/22 12:55 TH [id number]) Therapeutic Exercises Other Exercises AAROM Comments all planes of ankle movement Manual Therapy Treatment Soft Tissue Mobilization STM Comments Left foot and ankle PT-OP-R Modalities Start: 11/13/22 09:05 Freq: Status: Active Protocol: Document 12/15/22 11:10 TH (Rec: 12/15/22 12:55 TH [id number]) Ultrasound Therapy Treatment Left Comments Left medial ankle PT-OP-T Assessment and Plan Start: 11/13/22 09:05 Freq: Status: Active Protocol: Document 12/15/22 11:10 TH (Rec: 12/15/22 12:55 TH [id number]) Physical Therapy Assessment Goals 4 Multimedia Artist Goal (LTG) Pt will be able to navigate 1 flight of steps with alternating step pattern and minimal use of UE support. LTG Duration 01/29/23 3 Impairment Left ankle weakness. Short Term Goal (STG) Left ankle strength will improve to 4-/5 in all planes STG Duration 12/18/22 Mcc Goal (LTG) Left ankle strength will improve to 5/5 in all planes LTG Duration 01/29/23 2 Impairment Limited ankle rom Short Term Goal (STG) Left ankle rom will be WFL. STG Duration 12/18/22 Multimedia Artist Goal (LTG) Left ankle rom will be WNL LTG Duration 01/29/23 1 Impairment Unable to ambulate with weight through LLE Short Term Goal (STG) Pt will be able to ambulate with LRAD with PWB left LE ( 20 feet) STG Duration 12/18/22 Multimedia Artist Goal (LTG) Pt will be able to ambulate without AD FWB LLE ( 100 + feet) uneven/even terrain LTG Duration 01/29/23 Assessment Summary Assessment Pt is a little over 6 weeks out post injury and immobilization. She is still very painful/swollen left medial ankle along navicular region. Awaiting mri results and weight bearing precautions to progress as appropriate. Until then will progress with active rom in non weight bear position. Physical Therapy Plan Frequency and Duration Frequency of Treatment 2x/wk 8 wks 1x/wk 6 Therapeutic Interventions Therapeutic Interventions Gait Training,Home Exercise Program,Joint Mobilizations, Manual Therapy,Neuromuscular Re-education,Orthotic/ Prosthetic Management,Patient/ Caregiver Education,Self-Care/ Home Management,Sensory Integration,Soft Tissue Mobilization,Taping, Therapeutic Activities, Therapeutic Exercises Modalities Biofeedback,Cold Pack/Ice Massage,Electric Stimulation, Hot Packs,Ultrasound, Vasopneumatic Devices
--- NOTE | 2022-12-22 08:30 | PT-OP ANOTE ---
Pt called and cancelled today and following last scheduled appt due to change in status, MRI showed multiple fractures in foot. Pt will call back when cleared to continue PT with new referrral.
--- NOTE | 2022-12-22 08:36 | PT.OPDS ---
Current Diagnoses Nondisplaced avulsion fracture (chip fracture) of left talus, initial encounter for closed fracture (12/15/22) Sprain of deltoid ligament of left ankle, sequela (12/15/22) Visit Care Team Role Provider Type Emile Saenz MD Family Provider Physician Primary Care Provider Specialty: Family Practice Address: [address] [place] [address], [id number] Email: [email or web address] Charo Patiño DPM Attending Provider Physician Referring Provider Specialty: Orthopedics Orthopedic Surgery Podiatry Address: [address] [place] [address], [id number] Email: [email or web address] Visit Number Visit Number 9 Discharge Summary PT-OP-B Current Condition Start: 11/13/22 09:05 Freq: Status: Active Protocol: Document 11/13/22 09:06 TH (Rec: 11/13/22 11:11 TH [id number]) Current Condition History of Current Condition History of Current Condition Pt had a left ankle sprain injury and fracture of talus x two weeks ago. Pt. states that she had holding on to her dog when her dog suddenly jerked resulting in twist of left ankle. Pt c/o swelling despite elevating. Pt has a [employer] and wears all day except when sleeping. Pt has a second story but has staying down stairs. 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 Prior Treatments and Tests Per xray report: pt has left deltoid lig. avulsion as well as fx of talus. Prior Functional Status Baseline Function- ADL's Independent Baseline Function- Mobility Independent Current Functional Impairments (Reported) Functional Limitations- ADL's IND with ADLs needs assist with dressing lower half due to left ankle pain Functional Limitations- Mobility/Gait Using scooter for now and [employer] Has stairs though not currently using PT-OP-C Subjective Start: 11/13/22 09:05 Freq: Status: Active Protocol: Document 12/15/22 11:10 TH (Rec: 12/15/22 12:55 TH [id number]) OP-PT Subjective Patient Comments Patient Comments Pt states she had a f/u with podiatry and still feels precautions and prognosis unclear. Pt will have mri scheduled in the next week for further diagnostics. PT-OP-K Range of Motion Start: 11/13/22 09:05 Freq: Status: Active Protocol: Document 12/08/22 08:13 TH (Rec: 12/08/22 09:50 TH [id number]) Ankle and Foot Goniometric Range of Motion Ankle and Foot left Dorsiflexion with Knee Extended 14 Plantarflexion 15 Inversion 10 Eversion 9 PT-OP-M Strength Start: 11/13/22 09:05 Freq: Status: Active Protocol: Document 11/13/22 09:06 TH (Rec: 11/13/22 11:11 TH [id number]) Ankle/Foot Strength Ankle and Foot Manual Muscle Testing Left Comments unable to assess due to too much pain PT-OP-T Assessment and Plan Start: 11/13/22 09:05 Freq: Status: Active Protocol: Document 12/22/22 08:35 [facility] (Rec: 12/22/22 08:36 [facility] [id number]) Physical Therapy Assessment Assessment Summary Assessment Pt called and she just got an MRI that shows that she has multiple fractures in her foot . She will return to her PCP to follow up on this before continuing her Therapy here. She will request a new referral. DC at this time d/t change in medical status and not appropriate for PT. Pt will need new referral upon return to PT Physical Therapy Plan Discharge Physical Therapy Discharge Reasons Change in Medical Status
== END 2022-12-22 15:10 | disposition home or self-care (01) ==
LOC: PHYS 08:15
PROVIDERS: Family Provider Family Medicine; PCP Family Medicine; Referring Provider Podiatrist; Visit Provider Podiatrist
DX: S93.422S Sprain of deltoid ligament of left ankle, sequela (principal); S92.155A Nondisplaced avulsion fracture (chip fracture) of left talus, initial encounter for closed fracture
CPT/HCPCS: 97014; 97032; 97035; 97110; 97140; 97161; 97530; G0283

== ENCOUNTER → 2022-12-19 09:17 | Outpatient (CLI) | payer OTHER, SELFPAY ==
--- NOTE | 2022-12-19 09:18 | DI.MRI.S_ITS ---
PROCEDURE: MR ANKLE LT WO CON INDICATIONS: Dislocation of left ankle joint TECHNIQUE: Noncontrast sagittal T1 spin echo and T2 fast spin echo with fat saturation, axial proton density fast spin echo and T2 fast spin echo with fat saturation, coronal T1 spin echo and T2 fast spin echo with fat saturation through the ankle/hindfoot. COMPARISON: None. FINDINGS: Image quality: Excellent. Bones and joints: Mild subcutaneous soft tissue edema and swelling around ankle joint is seen. Oblique fracture through posterior aspect of mid distal tibia extending to posterior tibial plafond is seen. Minimal posterior displacement at fracture site is noted. No other fracture or marrow edema is seen. Tiny 1-2 mm T2 hyperintense signal areas scattered in talar dome weight-bearing portion is seen concerning for tiny osteochondral injuries. There is small amount of tibiotalar joint effusion, no gross loose bodies. Well-defined plantar and dorsal calcaneal enthesophytes are seen. Medial structures: The posterior tibialis, flexor digitorum longus, and flexor hallucis longus tendons are intact. The posterior tibial neurovascular bundle appears normal within the tarsal tunnel, without extrinsic mass effect. The deltoid ligament is thickened with intrasubstance T2 hyperintense signal. The spring ligament is intact. Lateral structures: The anterior talofibular ligament is attenuated with intrasubstance T2 hyperintense signal. The calcaneofibular, and posterior talofibular ligaments appear intact. More superiorly, the anterior and posterior tibiofibular ligaments appear thickened with intrasubstance T2 hyperintense signal. The tibiofibular syndesmosis is normal in width at 2 mm or less. The peroneus longus and brevis tendons are thickened with intrasubstance T2 hyperintense signal at the level of mid to distal calcaneus and calcaneocuboid joint. Adjacent bony peroneal tubercle and retrotrochlear prominence are normal in size. The sinus tarsi demonstrates normal fatty signal, without edema, fibrosis, or cyst formation. Visualized sinus tarsi components (cervical ligament, interosseous talocalcaneal ligament, roots of the inferior extensor retinaculum) appear normal. The calcaneonavicular and calcaneocuboid components of the bifurcate ligament appear intact. The dorsal calcaneocuboid ligament appears intact. Anterior structures: The tibialis anterior, extensor hallucis longus, and extensor digitorum longus tendons appear intact. The dorsal talonavicular ligament appears intact. Posterior and plantar structures: Achilles tendon is intact. Medial band of plantar fascia is mildly thickened at its plantar calcaneal insertion.. No abductor digiti quinti muscle atrophy to suggest Garcia neuropathy. IMPRESSION: 1. No dislocation is seen on the current study. Slightly displaced oblique fracture involving posterior aspect of distal tibia extending to posterior tibial plafond. Mild to moderate adjacent marrow edema. Small joint effusion, no gross loose bodies. Possible tiny osteochondral injuries involving weight-bearing portion of talar dome. 2. Sprain/low-grade intrasubstance partial-thickness tear involving deltoid ligament. 3. Moderate grade intrasubstance partial-thickness tear involving anterior talofibular ligament. Low-grade intrasubstance partial-thickness tear involving anterior and posterior tibial fibular ligaments. 4. Moderate grade tendinosis and low-grade partial-thickness tear involving peroneus tendons at the level of mid to distal calcaneus and calcaneocuboid joint. 5. Suggestion of low-grade plantar fasciitis. Dictated by: Nael Dubois M.D. on 12/21/2022 at 9:10 Approved by: Nael Dubois M.D. on 12/21/2022 at 9:18
== END ==
PROVIDERS: Family Provider Family Medicine; PCP Family Medicine; Referring Provider Orthopaedic Surgery Foot and Ankle Surgery; Visit Provider Orthopaedic Surgery Foot and Ankle Surgery
DX: S82.232A Displaced oblique fracture of shaft of left tibia, initial encounter for closed fracture (principal); S93.422A Sprain of deltoid ligament of left ankle, initial encounter; S93.492A Sprain of other ligament of left ankle, initial encounter; S93.432A Sprain of tibiofibular ligament of left ankle, initial encounter; S96.812A Strain of other specified muscles and tendons at ankle and foot level, left foot, initial encounter; X58.XXXA Exposure to other specified factors, initial encounter
CPT/HCPCS: 73721

== ENCOUNTER → 2023-02-03 16:08 | Outpatient (CLI) | payer OTHER, SELFPAY ==
--- NOTE | 2023-02-03 16:11 | DI.RAD.S_ITS ---
PROCEDURE: XR LUMBAR SPINE MIN 4V INDICATIONS: LOW BACK PAIN TECHNIQUE: 5 views of the lumbar spine were acquired, including bilateral oblique views. COMPARISON: None. FINDINGS: Bones: 5 nonrib-bearing vertebrae are present. There is normal bony alignment. No vertebral body compression fractures. No suspicious bony lesions. Mild degenerative disease at L2-L3, L3-L4, L4-L5 and L5-S1. Moderate facet arthropathy at L4-L5 and L5-S1. Soft tissues: Overlying bowel gas pattern is normal. No suspicious soft tissue calcifications. Oblique images: No pars defects. IMPRESSION: Degenerative disc and facet disease. Dictated by: Hollie Bowie M.D. on 02/04/2023 at 9:08 Approved by: Hollie Bowie M.D. on 02/04/2023 at 9:09
== END ==
LOC: DI 16:10 → RAD 02-04 10:14
PROVIDERS: Family Provider Family Medicine; PCP Family Medicine; Referring Provider Physical Medicine & Rehabilitation; Visit Provider Physical Medicine & Rehabilitation
DX: M51.36 Other intervertebral disc degeneration, lumbar region (principal); M51.37 Other intervertebral disc degeneration, lumbosacral region; M47.816 Spondylosis without myelopathy or radiculopathy, lumbar region; M47.817 Spondylosis without myelopathy or radiculopathy, lumbosacral region; M54.50 Low back pain, unspecified
CPT/HCPCS: 72110

== ENCOUNTER 2023-04-29 08:15 | Outpatient (CLI) | payer OTHER, SELFPAY ==
[2023-04-29] VITALS (9 sets, daily range): BP systolic 135–156; BP diastolic 65–115; PULSE 74–92; RESP 12–24; TEMP 35.9; O2SAT 95–99
--- NOTE | 2023-04-29 08:17 | DI.RAD.S_ITS ---
PROCEDURE: PAIN L INTERLAMINAR/CAUDAL INJ INDICATIONS: SPONDYLOSIS COMPARISON: [facility], DREAD, XR LUMBAR SPINE MIN 4V, 02/03/2023, 16:16. [facility], RG, MRI L-SPINE W/O CONTRAST, 04/02/2023, 14:36. FINDINGS: Fluoroscopic spot filming was performed to verify placement of a spinal needle at the L4-L5 level, as labeled on the films. Appropriate location of the needle tip was confirmed by injection of iodinated contrast. IMPRESSION: Intraprocedural examination within normal limits. Dictated by: Will Harrison M.D. on 04/29/2023 at 12:24 Approved by: Will Harrison M.D. on 04/29/2023 at 12:25
[2023-04-29] MEDS: MIDAZOLAM 2 MG/2 ML VIAL IV (09:05)
[2023-04-29] MEDS: diphenhydrAMINE 50 MG/ML VIAL 25 MG IV (09:05)
[2023-04-29] MEDS: fentaNYL 100 MCG/2 ML INJ 50 MCG IV (09:11)
[2023-04-29] MEDS: DEXAMETHASONE 10 MG/ML VIAL INJ (09:12)
[2023-04-29] MEDS: BETAMETHASONE 30 MG/5 ML MDV 6 MG INJ (09:12)
[2023-04-29] MEDS: IOPAMIDOL 15 ML VIAL 3 ML INJ (09:12)
[2023-04-29] MEDS: BUPIVACAINE 0.25% (PF) VIAL 2 ML INJ (09:13)
--- NOTE | 2023-04-29 09:28 | P.PCN_ITS ---
Date/Time/Diagnoses Date of procedure: 04/29/23 Time of procedure: 09:28 Pre-procedure diagnosis: 1. HNP WITH RADICULAR FEATURES, 2. MULTILEVEL CENTRAL STENOSIS, Post-procedure diagnosis: same Procedure Notes Procedure: 1. FLUOROSCOPICALLY GUIDED CONTRAST CONTROLLED INTERLAMINAR EPIDURAL STEROID INJECTION -L4/5 Indications: Sue is referred by Dr. Saenz for treatment of Bilateral Foraminal Stenosis R>L LE symptoms. Physician: Cruzito Esqueda Total Fluoroscopy time (seconds): 13 Total sedation minutes: 13 Complications: none Procedure in detail & Post-procedure care: FINDINGS Multilevel Central Spinal Stenosis with Nerve Root Compression DESCRIPTION OF PROCEDURE Fluoroscopically guided, contrast-controlled L4/5 translaminar epidural steroid injection. Following review of allergy and review of potential side effects and complications, including, but not necessarily limited to, infection, allergic reaction, local tissue breakdown, temporary as well as permanent nerve injury, paralysis, stroke and possible , the patient indicated that the patient understood and agreed to proceed. An informed consent document was signed by the patient, witnessed by a nurse, and placed in the patient's chart. Additionally, other treatment options including modalities, medications, and physical therapy were reviewed with the patient. After review of previous anaesthesic history and IV conscious sedation the patient was deemed safe to proceed with today?s procedure with IV conscious sedation as ASA class II designation. Safety time-out was performed to confirm patient ID, procedure to be performed and site of procedure. IV sedation was accomplished with a combination of 2mg of Versed and 50mcg of Fentanyl was administered by the RN after DO order, titrated to patient comfort during the course of the procedure while the patient remained responsive to all verbal commands In the prone position, following sterile prep and drape of the lumbar region, the L4/5 translaminar space was identified fluoroscopically. The skin was anesthetized via a 25-gauge, 1.5inch needle with 1% lidocaine solution. At this point, a 22-gauge short bevel spinal needle was atraumatically introduced and advanced under fluoroscopic guidance into the region of the L4/5 translaminar space. Depth was confirmed on lateral view. Radiological data, including multiple fluoroscopic views of the lumbar spine, reveal a spinal needle at the L4/5 translaminar space. Lateral views then show placement of the needle in the epidural space. Subsequent views show contrast material flowing superiorly and inferiorly in the epidural space. No vascular or intrathecal uptake is observed. At this point, using loss of resistance technique with saline and air, the epidural space was entered. This was confirmed following negative aspiration with injection of approximately 1.5cc of Isovue 200, showing excellent epidural flow without vascular or intrathecal uptake. At this point, 1cc of 1% lidocaine solution combined with 2cc or 10mg of dexamethasone and 6mg betamethasone was injected without incident. The patient tolerated the procedure well without signs or symptoms of compli cations prior to transfer to the recovery area continued monitoring without incident. The patient was then transferred to the recovery area where they were observed for an appropriate period of time after the injection. The patient reported a VAS score of 6 prior to the procedure and a post- procedure VAS of 1. POST OP INSTRUCTIONS The patient was provided a Pain Log to continue to record their response to the target-specific procedure prior to follow-up visit with their referring physician. Additionally, specific post-injection care instructions and a contact number to our office were provided if concerns arise regarding possible complications associated with the procedure are suspected.
== END 2023-04-29 09:45 | disposition home or self-care (01) ==
LOC: RAD 08:16
PROVIDERS: Family Provider Family Medicine; PCP Family Medicine; Referring Provider Physical Medicine & Rehabilitation; Visit Provider Physical Medicine & Rehabilitation
DX: M51.16 Intervertebral disc disorders with radiculopathy, lumbar region (principal); M48.061 Spinal stenosis, lumbar region without neurogenic claudication
CPT/HCPCS: 62323; 99152; J0702; J1100; J1200; J2250; J3010; J3490

== ENCOUNTER → 2023-11-19 11:52 | Outpatient (CLI) | payer OTHER, SELFPAY | PROVIDERS: Family Provider Family Medicine; PCP Family Medicine; Visit Provider Nurse Practitioner Family | DX: J02.9 Acute pharyngitis, unspecified (principal) | CPT/HCPCS: 87070 ==

== ENCOUNTER → 2023-11-23 15:41 | Outpatient (CLI) | payer OTHER, SELFPAY ==
[2023-11-23 17:03] LABS: Influenza A - CEPHEID Flu A NEGATIVE (NEGATIVE); Influenza B - CEPHEID Flu B NEGATIVE (NEGATIVE); Respiratory Syncytial Virus Negative (Negative)
[2023-11-23 17:06] LABS: COVID-19 CEPHEID 4-PLEX PCR Negative (Negative)
== END ==
PROVIDERS: Family Provider Family Medicine; PCP Family Medicine; Visit Provider Physician Assistant
DX: R05.9 Cough, unspecified (principal); R43.2 Parageusia; R43.0 Anosmia; R50.9 Fever, unspecified
CPT/HCPCS: 0241U

== ENCOUNTER → 2023-11-30 10:29 | Outpatient (CLI) | payer OTHER, SELFPAY ==
--- NOTE | 2023-11-30 10:30 | DI.RAD.S_ITS ---
PROCEDURE: XR CHEST 2V INDICATIONS: Persistent cough TECHNIQUE: 2 views of the chest were acquired. COMPARISON: [facility], , XR CHEST 2V, 05/14/2021, 11:14. [facility], , CHEST 2 VIEW, 12/26/2013, 15:31. FINDINGS: Surgical changes and devices: None. Lungs and pleura: Lungs are clear. No pleural effusions or pneumothorax. Mediastinum: Mediastinal contours are normal. Heart size is normal. Bones and chest wall: No suspicious bony abnormalities. Soft tissues appear unremarkable. IMPRESSION: No acute cardiopulmonary abnormality is seen. Dictated by: Gurjit Gamboa M.D. on 11/30/2023 at 11:45 Approved by: Gurjit Gamboa M.D. on 11/30/2023 at 11:46
== END ==
PROVIDERS: Family Provider Family Medicine; PCP Family Medicine; Referring Provider Physician Assistant; Visit Provider Physician Assistant
DX: R05.3 Chronic cough (principal)
CPT/HCPCS: 71046

== ENCOUNTER → 2024-03-16 12:09 | Outpatient (CLI) | payer OTHER, SELFPAY ==
[2024-03-16 13:45] LABS: Influenza A - CEPHEID Flu A NEGATIVE (NEGATIVE); Influenza B - CEPHEID Flu B NEGATIVE (NEGATIVE); Respiratory Syncytial Virus Negative (Negative)
[2024-03-16 13:47] LABS: COVID-19 CEPHEID 4-PLEX PCR Negative (Negative)
== END ==
PROVIDERS: Family Provider Family Medicine; PCP Family Medicine; Visit Provider Family Medicine
DX: R50.9 Fever, unspecified (principal); J34.89 Other specified disorders of nose and nasal sinuses; H92.02 Otalgia, left ear
CPT/HCPCS: 0241U

== ENCOUNTER 2024-08-23 11:11 | Emergency (ER) | payer OTHER, SELFPAY ==
[2024-08-23 11:14] VITALS: BP 127/88; PULSE 115; RESP 22; TEMP 37.2; O2SAT 100; BMI 39.4
--- NOTE | 2024-08-23 11:19 | DI.RAD.S_ITS ---
PROCEDURE: XR CHEST 1V INDICATIONS: cough, crackles TECHNIQUE: One view of the chest was acquired. COMPARISON: [facility], CR, XR CHEST 2V, 11/30/2023, 10:42. FINDINGS: Surgical changes and devices: None. Lungs and pleura: Increased bronchovascular markings in bilateral hilar region are seen with mild bronchial wall thickening. No focal infiltrate. No pleural effusions or pneumothorax. Mediastinum: Mediastinal contours appear normal. Heart size is normal. Bones and chest wall: No suspicious bony lesions. Overlying soft tissues appear unremarkable. IMPRESSION: Suggestion of reactive airway disease such as bronchitis or viral illness. No focal infiltrate, pleural effusion or pneumothorax. Dictated by: Nael Dubois M.D. on 08/23/2024 at 11:55 Approved by: Nael Dubois M.D. on 08/23/2024 at 11:55
--- NOTE | 2024-08-23 11:23 | ED_ITS ---
HPI - URI/Sore Throat <Magaly Nguyen PA-C - Last Filed: 08/23/24 13:27> General Chief Complaint: Upper Respiratory Symptoms Stated Complaint: SOB, fever, cough, vomiting Time Seen by Provider: 08/23/24 11:23 History of Present Illness HPI Narrative: 49-year-old female presents with 4 day history of cough, general malaise, body aches, fever, vomiting which she describes as phlegm only. She is denying any headache, abdominal pain back pain per se. She was visiting family in [place] at states many members of her household were sick with some type of illness.? She took Tylenol this morning at 7:00 a.m., she endorses soreness of throat, ear fullness, no rash. She is vaccinated for influenza this season. History is significant for community-acquired pneumonia November 23, 2023 she completed a course of Augmentin and prednisone along with some albuterol. Chest x-ray on November 30, 2023 was normal. History is significant for dorsalgia low back pain, hyperlipidemia, COVID-19, cholecystectomy, tonsillectomy, BSO, she has never smoked. All other systems reviewed and are negative. Related Data Previous Rx's Medication Instructions Recorded inhalational spacing device #1 ea 11/23/23 (BreatheRite MDI Spacer) cyclobenzaprine 10 mg tablet 10 mg PO BID PRN muscle spasm #60 05/04/24 tabs estradiol 0.5 mg tablet 0.5 mg PO DAILY #90 tabs 05/08/24 progesterone micronized 100 mg 100 mg PO QAM #90 caps 05/08/24 capsule citalopram 20 mg tablet 20 mg PO DAILY Depression #90 tabs 06/19/24 ondansetron 4 mg disintegrating 4 mg PO Q6H PRN nausea and 08/23/24 tablet vomiting #20 tabs Allergies Allergy/AdvReac Type Severity Reaction Status Date / Time Sulfa (Sulfonamide Allergy Severe angioedema, Verified 05/04/24 09:50 Antibiotics) rash doxycycline [DOXYCYCLINE] Allergy Mild Verified 05/04/24 09:50 Iodinated Contrast Media Allergy Mild RASH Verified 05/04/24 09:50 [IODINATED CONTRAST MEDIA - IV DYE] tetracycline [TETRACYCLINE] Allergy Mild Verified 05/04/24 09:50 Review of Systems <Magaly Nguyen PA-C - Last Filed: 08/23/24 13:27> Review of Systems Narrative: All other systems reviewed and are negative. Patient History <Magaly Nguyen PA-C - Last Filed: 08/23/24 13:27> Medical History Herniated nucleus pulposus, L4-5 Herniated nucleus pulposus, L5-S1, left Facet arthropathy, lumbar Surgical History History of bilateral salpingo-oophorectomy (BSO) (2006) Status post tonsillectomy and adenoidectomy (1989) History of third molar tooth extraction (1995) Status post laparoscopic cholecystectomy (2009) Social History Smoking Status: Never smoker Smoking Status: Never smoker Exam <Magaly Nguyen PA-C - Last Filed: 08/23/24 13:27> Initial Vital Signs Initial Vital Signs: Vital Signs Temperature 99.0 F 08/23/24 11:14 Pulse Rate 115 H 08/23/24 11:14 Respiratory Rate 22 08/23/24 11:14 Blood Pressure 127/88 08/23/24 11:14 Pulse Oximetry 100 08/23/24 11:14 Oxygen Delivery Method Room Air 08/23/24 11:14 Vital signs reviewed and are normal. Const General: cooperative, healthy appearing, comfortable, well developed, well groomed and No acute distress Other: Pleasantly conversing, work of breathing is normal. [facility] Head: normal to inspection and normocephalic Ears: hearing grossly normal bilaterally, external ears normal, TM's normal bilaterally and no periauricular adenopathy Nose: external nose normal and nares normal Face and sinus: normal facial exam, sinuses nontender and face symmetric Mouth: oral mucosae normal, tongue normal and No muffled voice Teeth and gingiva: dentition normal and gingiva normal Throat: posterior oropharynx normal, uvula midline and tonsils absent Eyes General: Yes appearance normal, both eyes and all related structures Neck Neck: normal visual inspection, full ROM, no meningeal signs, trachea midline and supple Lymphatic: No lymphadenopathy Resp Effort & Inspection: normal respiratory effort and able to speak in complete sentences Auscultation: clear to auscultation bilaterally, no rales, no rhonchi and no wheezes Other: Scant expiratory rhonchorous sounds throughout all dhaliwal, equal expansion, non diminished at the bases, right middle lobe is clear. Cardio Rate: regular rate Rhythm: regular rhythm GI Palpation: no hepatosplenomegaly Other: No CVA tenderness. Skin General: no rashes or lesions noted, elasticity normal and turgor normal <Hazel Dotson MD - Last Filed: 08/23/24 15:19> Initial Vital Signs Initial Vital Signs: Vital Signs Temperature 99.0 F 08/23/24 11:14 Pulse Rate 115 H 08/23/24 11:14 Respiratory Rate 22 08/23/24 11:14 Blood Pressure 127/88 08/23/24 11:14 Pulse Oximetry 100 08/23/24 11:14 Oxygen Delivery Method Room Air 08/23/24 11:14 Course <Magaly Nguyen PA-C - Last Filed: 08/23/24 13:27> Course Course Narrative: Oral disintegrating Zofran given it was quite helpful, p.o. challenge including a half of a moses popsicle and sips of water were well-tolerated, no emesis during her stay in the emergency department. Her headache recurred and she was treated with Toradol 30 mg intramuscularly, she had excellent results with this, overall she feels markedly improved and ready for discharge. Orders Ordered: ED Orders 08/23/24 11:19 XR chest 1V Stat 08/23/24 11:20 Covid-19 + FLU A/B + RSV - PCR Stat Discontinued Medications Ketorolac Tromethamine (Ketorolac 30 Mg/Ml Vial) 30 mg IM NOW ONE Stop: 08/23/24 12:56 Last Admin: 08/23/24 13:06 Dose: 30 mg Documented By: JOHN Ondansetron HCl (Ondansetron 4 Mg Odt) 4 mg SL NOW ONE Stop: 08/23/24 12:11 Last Admin: 08/23/24 12:22 Dose: 4 mg Documented By: DINORA Ondansetron HCl (Ondansetron 4 Mg Odt Prepack) 1 bottle MISC DIRECTED ONE Stop: 08/23/24 12:47 Last Admin: 08/23/24 13:06 Dose: 1 bottle Documented By: JOHN Vital Signs Vital signs: Vital Signs - 8 hr 08/23/24 11:14 08/23/24 13:18 Temperature 99.0 F 101.8 F H Pulse Rate 115 H 102 H Respiratory Rate 22 Blood Pressure 127/88 132/71 Pulse Oximetry 100 98 Oxygen Delivery Method Room Air Room Air <Hazel Dotson MD - Last Filed: 08/23/24 15:19> Orders Ordered: ED Orders 08/23/24 11:19 XR chest 1V Stat 08/23/24 11:20 Covid-19 + FLU A/B + RSV - PCR Stat Discontinued Medications Ketorolac Tromethamine (Ketorolac 30 Mg/Ml Vial) 30 mg IM NOW ONE Stop: 08/23/24 12:56 Last Admin: 08/23/24 13:06 Dose: 30 mg Documented By: JOHN Ondansetron HCl (Ondansetron 4 Mg Odt) 4 mg SL NOW ONE Stop: 08/23/24 12:11 Last Admin: 08/23/24 12:22 Dose: 4 mg Documented By: DINORA Ondansetron HCl (Ondansetron 4 Mg Odt Prepack) 1 bottle MISC DIRECTED ONE Stop: 08/23/24 12:47 Last Admin: 08/23/24 13:06 Dose: 1 bottle Documented By: JOHN Vital Signs Vital signs: Vital Signs - 8 hr 08/23/24 11:14 08/23/24 13:18 Temperature 99.0 F 101.8 F H Pulse Rate 115 H 102 H Respiratory Rate 22 Blood Pressure 127/88 132/71 Pulse Oximetry 100 98 Oxygen Delivery Method Room Air Room Air MDM - URI/Sore Throat <Magaly Nguyen PA-C - Last Filed: 08/23/24 13:27> Lab Data Lab results narrative: Viral swab is positive for influenza A. Labs: Lab Results 08/23/24 Range/Units 11:20 SARS-CoV-2 (PCR) Negative (Negative) Influenza A (RT-PCR) Flu a positive H (NEGATIVE) Influenza B (RT-PCR) Flu b negative (NEGATIVE) RSV (PCR) Negative (Negative) Imaging Data Chest x-ray: My Impression: Deferred to radiologist's interpretation below. Radiologist's Impression: PROCEDURE: XR CHEST 1V INDICATIONS: cough, crackles TECHNIQUE: One view of the chest was acquired. COMPARISON: [facility], CR, XR CHEST 2V, 11/30/2023, 10:42. FINDINGS: Surgical changes and devices: None. Lungs and pleura: Increased bronchovascular markings in bilateral hilar region are seen with mild bronchial wall thickening. No focal infiltrate. No pleural effusions or pneumothorax. Mediastinum: Mediastinal contours appear normal. Heart size is normal. Bones and chest wall: No suspicious bony lesions. Overlying soft tissues mary ear unremarkable. IMPRESSION: Suggestion of reactive airway disease such as bronchitis or viral illness. No focal infiltrate, pleural effusion or pneumothorax. Dictated by: Nael Dubois M.D. on 08/23/2024 at 11:55 Approved by: Nael Dubois M.D. on 08/23/2024 at 11:55 MDM Narrative Medical decision making narrative: She is vaccinated for influenza, she did test positive today for influenza, chest x-ray is consistent with a viral illness or bronchitis, lung exam reveals very scant rhonchorous expiratory sounds, equal expansion. No history of any airspace disease. She was given some oral disintegrating Zofran as well as a to go pack it as pharmacies are closed, she tolerated a moses popsicle and oral water. We discussed doing clear liquids throughout the day maintaining her hydration avoiding dairy, steam therapy, supportive measures including acetaminophen or ibuprofen if tolerated. Rest and of course do seek medical attention if anything changes. We did discuss red flag warning signs including difficulty breathing, vomiting, worsening lethargy, we also discussed Tamiflu she is outside the treatment window 48 hours as her symptoms have been going on for about 4 days now. So that was not prescribed. Additional Zofran prescription is prescribed, she can get tomorrow. Re-evaluated at the time of discharge she endorses mild headache, she is due for Tylenol which she will take when she gets home but she has been dosed with Toradol 30 mg intramuscularly prior to departure as she has had this in the past and I think this will give her some better coverage and then she will not have to take any additional NSAIDs today. <Hazel Dotson MD - Last Filed: 08/23/24 15:19> Lab Data Labs: Lab Results 08/23/24 Range/Units 11:20 SARS-CoV-2 (PCR) Negative (Negative) Influenza A (RT-PCR) Flu a positive H (NEGATIVE) Influenza B (RT-PCR) Flu b negative (NEGATIVE) RSV (PCR) Negative (Negative) Discharge Plan Departure Patient Disposition: Home Clinical Impression: Influenza A Instructions: DI for Influenza -- Adult Activity Restrictions/Additional Instructions: Keep her activity light, additional Zofran has been dispensed along with a prescription that you can steel pickler tomorrow if needed, clear liquids, popsicles, do sips try not to gulp and just hydrate throughout the day this includes clear broth, advance as tolerated with some snacks that are salty such as crackers or goldfish, avoid dairy. Rest, steam therapy, consider a shower chair for safety, and of course do not hesitate to return to the emergency department if you have any worsening symptoms. Your outside the treatment window for the Tamiflu antiviral but you are commended for getting vaccinated this season I am hopeful that it will resolve your symptoms gradually this week and feel better. Prescriptions: New ondansetron 4 mg tablet,disintegrating 4 mg PO Q6H PRN (Reason: nausea and vomiting) Qty: 20 0RF No Action progesterone micronized 100 mg capsule 100 mg PO QAM Qty: 90 3RF estradiol 0.5 mg tablet 0.5 mg PO DAILY Qty: 90 3RF citalopram 20 mg tablet 20 mg PO DAILY Qty: 90 3RF (DME) BreatheRite MDI Spacer Spacer See Rx Instructions .Route Qty: 1 0RF Rx Instructions: As directed cyclobenzaprine 10 mg tablet 10 mg PO BID PRN (Reason: muscle spasm) Qty: 60 0RF Referrals: Emile Saenz MD [Primary Care Provider] - Stand Alone Forms: Patient Portal/API/Survey ED Sign-out <Hazel Dotson MD - Last Filed: 08/23/24 15:19> Cosign ED Attending Cosignature Attestation: I was immediately available in the department for consultation throughout this patient's visit. Hazel Dotson MD
[2024-08-23 12:06] LABS: Influenza A - CEPHEID Flu A POSITIVE (NEGATIVE); Influenza B - CEPHEID Flu B NEGATIVE (NEGATIVE); Respiratory Syncytial Virus Negative (Negative)
[2024-08-23 12:14] LABS: COVID-19 CEPHEID 4-PLEX PCR Negative (Negative)
[2024-08-23] MEDS: ONDANSETRON 4 MG ODT SL (12:22)
[2024-08-23] MEDS: ONDANSETRON 4 MG ODT PREPACK 1 BOTTLE MISC (13:06)
[2024-08-23] MEDS: KETOROLAC 30 MG/ML VIAL IM (13:06)
[2024-08-23 13:18] VITALS: BP 132/71; PULSE 102; TEMP 38.8; O2SAT 98
== END 2024-08-23 13:18 | disposition home or self-care (01) ==
PROVIDERS: Emergency Provider Physician Assistant Medical; Family Provider Family Medicine; PCP Family Medicine
DX: J10.1 Influenza due to other identified influenza virus with other respiratory manifestations (principal)
CPT/HCPCS: 0241U; 71045; 96372; 99284; J1885

== ENCOUNTER → 2024-09-11 11:53 | Outpatient (CLI) | payer OTHER, SELFPAY ==
--- NOTE | 2024-09-11 11:54 | DI.RAD.S_ITS ---
PROCEDURE: XR CHEST 2V INDICATIONS: ongoing cough, bronchitis TECHNIQUE: 2 views of the chest were acquired. COMPARISON: [facility], CR, XR CHEST 1V, 08/23/2024, 11:29. [facility], CR, XR CHEST 2V, 11/30/2023, 10:42. FINDINGS: Surgical changes and devices: None. Lungs and pleura: Lungs are clear. No pleural effusions or pneumothorax. Mediastinum: Mediastinal contours are normal. Heart size is normal. Bones and chest wall: No suspicious bony abnormalities. Soft tissues appear unremarkable. IMPRESSION: No acute cardiopulmonary abnormality is seen. Dictated by: Gerardo Jones M.D. on 09/11/2024 at 12:42 Approved by: Gerardo Jones M.D. on 09/11/2024 at 12:43
== END ==
PROVIDERS: Family Provider Family Medicine; PCP Family Medicine; Referring Provider Family Medicine; Visit Provider Family Medicine
DX: R05.9 Cough, unspecified (principal); J40 Bronchitis, not specified as acute or chronic
CPT/HCPCS: 71046

== ENCOUNTER → 2025-01-03 08:05 | Outpatient (CLI) | payer OTHER, SELFPAY ==
[2025-01-03 08:42] LABS: Add Manual Diff / Slide Review NO; Basophils Absolute Auto 0 /uL (0-100); Eosinophils Absolute Auto 100 /uL (0-450); Eosinophils Percent Auto 3.3 % (2-4); Hematocrit 42.6 % (36-46); Hemoglobin 14.5 g/dL (12.0-16.0); Lymphocytes Absolute Auto 1300 /uL (1100-4500); Lymphocytes Percent Auto 29.4 % (25-40); Mean Corpuscular HGB Conc 34.1 % (30-36); Mean Corpuscular Hemoglobin 31.4 PG (26-34); Monocytes Absolute Auto 700 /uL (0-900); Monocytes Percent Auto 15.6 % (3-14); Neutrophils Absolute Auto 2200 /uL (1500-7000); Neutrophils Percent Auto 50.7 % (50-75); Platelet Count 255 X10^3/uL (150-400); Red Blood Cell Count 4.63 X10^6/uL (4.0-5.2); Red Cell Distribution Width 12.9 % (11.6-14.8); White Blood Cell Count 4.3 X10^3/uL (4.5-11.0)
[2025-01-03 09:04] LABS: Alanine Aminotransferase 42 IU/L (<35); Albumin 4.4 g/dL (3.5-5.0); Albumin Globulin Ratio 1.7 (1.0-2.8); Alkaline Phosphatase 92 U/L (38-126); Aspartate Aminotransferase 31 IU/L (14-36); BUN Creatinine Ratio 24.7 (6-22); Bilirubin Total 0.5 mg/dL (0.2-1.3); Blood Urea Nitrogen 23 mg/dL (7-17); Calcium 9.4 mg/dL (8.4-10.2); Carbon Dioxide 25 mmol/L (22-32); Chloride 104 mmol/L (98-107); Cholesterol 263 mg/dL (140-199); Estimated Glomerular Filt Rate > 60 mL/min (>60); Globulin 2.6 g/dL (1.7-4.1); Glucose 113 mg/dL (70-99); HDL Cholesterol 99 mg/dL (40-60); HEMOLYSIS < 15 (0-50); Hemoglobin A1C% w Est Avg Glu 5.3 % (4.0-6.0); LDL Cholesterol Calculated 143 mg/dL (<100); Potassium 4.8 mmol/L (3.4-5.1); Sodium 137 mmol/L (137-145); Triglycerides 104 mg/dL (35-150)
[2025-01-03 09:30] LABS: Thyroid Stimulating Hormone 0.886 uIU/mL (0.47-4.68)
== END ==
PROVIDERS: PCP Student in an Organized Health Care Education/Training Program; Referring Provider Student in an Organized Health Care Education/Training Program; Visit Provider Student in an Organized Health Care Education/Training Program
DX: R63.5 Abnormal weight gain (principal)
CPT/HCPCS: 36415; 80053; 80061; 83036; 84443; 85025

== ENCOUNTER → 2025-02-15 13:48 | Outpatient (CLI) | payer OTHER, SELFPAY | LOC: PHYS 13:48 | PROVIDERS: Family Provider Student in an Organized Health Care Education/Training Program; PCP Student in an Organized Health Care Education/Training Program; Referring Provider Student in an Organized Health Care Education/Training Program; Visit Provider Student in an Organized Health Care Education/Training Program | DX: R20.0 Anesthesia of skin (principal); R20.2 Paresthesia of skin | CPT/HCPCS: 95886; 95911 ==